=== PATIENT | female | born 1960 | race Caucasian/White ===

== ENCOUNTER 2017-08-18 12:17 | Emergency (ER) | payer MEDICARE, OTHER ==
[2017-08-18] MEDS ORDERED: RX INFO: IV CONTRAST WAS GIVEN 1 EACH MISC MISCELLANE PRN (13:15)
[2017-08-18] MEDS ORDERED: SODIUM CHLORIDE 0.9% 500 ML IV STA (13:15)
--- NOTE | 2017-08-18 13:18 | ED ---
General Adult HPI - General Chief complaint: Back Pain/Injury Stated complaint: Back/Rib Pain Time Seen by Provider: 08/18/17 12:42 Source: patient, RN notes reviewed Mode of arrival: ambulatory Limitations: no limitations - History of Present Illness Initial comments: 57-year-old female presents to the emergency department with a chief complaint of right-sided back and rib pain. She states she's had it for a week. She states mild shortness of breath with this. She states she's had a little bit of cough. She states she's also had some increased acid reflux as well. Patient was concerned due to her continued pain so she went to her doctor he scheduled for an outpatient x-ray but she states that she lost the order so she is here to be seen. Patient denies any fever chills with this. She states she is not currently having any other symptoms.Patient denies any recent fever, chills, abdominal pain, nausea vomiting, numbness or tingling, dysuria or hematuria, constipation or diarrhea, headaches or visual changes, or any other current symptoms. - Related Data Home Medications Medication Instructions Recorded Confirmed Losartan Potassium 100 mg PO DAILY 09/14/14 08/18/17 Rivaroxaban [Xarelto] 20 mg PO DAILY 09/14/14 08/18/17 Acetaminophen [Tylenol Extra 1,000 mg PO BID PRN 08/18/17 08/18/17 Strength] Previous Rx's Medication Instructions Recorded Famotidine [Pepcid] 20 mg PO BID #10 tablet 08/18/17 Hydrocodone/Acetaminophen [[place] 1 each PO Q6HR PRN #20 tab 08/18/17 5-325] Allergies Allergy/AdvReac Type Severity Reaction Status Date / Time No Known Allergies Allergy Verified 08/18/17 12:42 Review of Systems ROS Statement: Those systems with pertinent positive or pertinent negative responses have been documented in the HPI. ROS Other: All systems not noted in ROS Statement are negative. Past Medical History Past Medical History: Hypertension, Pulmonary Embolus (PE) Additional Past Medical History / Comment(s): ortho problems in knees bilaterally. History of Any Multi-Drug Resistant Organisms: None Reported Past Surgical History: No Surgical Hx Reported Past Psychological History: No Psychological Hx Reported Smoking Status: Never smoker Past Alcohol Use History: None Reported Past Drug Use History: None Reported - Past Family History Mother Family Medical History: Blood Disorder, Deep Vein Thrombosis (DVT) Father Family Medical History: Deep Vein Thrombosis (DVT) General Exam - General Exam Comments Initial Comments: General: The patient is awake and alert, in no distress, and does not appear acutely ill. Eye: Pupils are equal, round and reactive to light, extra-ocular movements are intact; there is normal conjunctiva bilaterally. No signs of icterus. Ears, nose, mouth and throat: There are moist mucous membranes and no oral lesions. Neck: The neck is supple, there is no tenderness. Cardiovascular: There is a regular rate and rhythm. No murmur, rub or gallop is appreciated. Respiratory: Lungs are clear to auscultation, respirations are non-labored, breath sounds are equal. No wheezes, stridor, rales, or rhonchi. Gastrointestinal: Soft, non-distended, non-tender abdomen without masses or organomegaly noted. There is no rebound or guarding present. No CVA tenderness. Bowel sounds are unremarkable. Back: There is no tenderness to palpation in the midline. There is no obvious deformity. No rashes noted. Musculoskeletal: Normal ROM, no tenderness, There is no pedal edema. There is no calf tenderness or swelling. Sensation intact. Pulses equal bilaterally 2+. Neurological: CN II-XII intact, There are no obvious motor or sensory deficits. Coordination appears grossly intact. Speech is normal. Skin: Skin is warm and dry and no rashes or lesions are noted. Psychiatric: Cooperative, appropriate mood & affect, normal judgment. Limitations: no limitations Course Vital Signs 08/18/17 08/18/17 08/18/17 12:24 14:15 16:00 Temperature 98.0 F Pulse Rate 86 75 82 Respiratory 18 18 20 Rate Blood Pressure 142/94 140/80 153/81 O2 Sat by Pulse 96 96 95 Oximetry 08/18/17 17:49 Temperature Pulse Rate 77 Respiratory 18 Rate Blood Pressure 150/75 O2 Sat by Pulse 96 Oximetry Medical Decision Making - Medical Decision Making 57 yo female presents for right-sided upper back/lower rib pain. At this time VQ shows low probability for PE. At this time lab work is been reviewed. We will start patient on Pepcid due to her acid reflux. We did discuss follow-up with her doctor. We'll also give her medication for her pain in the back. We discussed return parameters all questions. Patient stated that she understood and she is agreement this plan. She will be discharged. - Lab Data Result diagrams: 08/18/17 13:26 08/18/17 13:26 Lab Results 08/18/17 08/18/17 08/18/17 Range/Units 13:26 13:26 13:26 WBC 6.8 (3.8-10.6) k/uL RBC 5.01 (3.80-5.40) m/uL Hgb 13.9 (11.4-16.0) gm/dL Hct 43.8 (34.0-46.0) % MCV 87.5 (80.0-100.0) fL MCH 27.8 (25.0-35.0) pg MCHC 31.8 (31.0-37.0) g/dL RDW 13.6 (11.5-15.5) % Plt Count 322 (150-450) k/uL Neutrophils % 74 % Lymphocytes % 18 % Monocytes % 5 % Eosinophils % 2 % Basophils % 1 % Neutrophils # 5.0 (1.3-7.7) k/uL Lymphocytes # 1.2 (1.0-4.8) k/uL Monocytes # 0.4 (0-1.0) k/uL Eosinophils # 0.1 (0-0.7) k/uL Basophils # 0.0 (0-0.2) k/uL PT 11.0 (9.0-12.0) sec INR 1.1 (<1.2) APTT 26.1 (22.0-30.0) sec Sodium 146 H (137-145) mmol/L Potassium 4.0 (3.5-5.1) mmol/L Chloride 107 (98-107) mmol/L Carbon Dioxide 25 (22-30) mmol/L Anion Gap 14 mmol/L BUN 18 H (7-17) mg/dL Creatinine 0.60 (0.52-1.04) mg/dL Est GFR (MDRD) Af Amer >60 (>60 ml/min/1.73 sqM) Est GFR (MDRD) Non-Af >60 (>60 ml/min/1.73 sqM) Glucose 92 (74-99) mg/dL Calcium 10.0 (8.4-10.2) mg/dL Total Bilirubin 0.6 (0.2-1.3) mg/dL AST 24 (14-36) U/L ALT 28 (9-52) U/L Alkaline Phosphatase 73 (38-126) U/L Total Protein 8.4 H (6.3-8.2) g/dL Albumin 4.6 (3.5-5.0) g/dL Amylase 43 (30-110) U/L Lipase 57 (23-300) U/L - Radiology Data Radiology results: report reviewed, image reviewed Disposition Clinical Impression: Acid reflux, Strain of thoracic region Disposition: HOME SELF-CARE Condition: Stable Instructions: Gastroesophageal Reflux Disease (ED), Muscle Strain (ED) Additional Instructions: Please use medication as discussed. Please follow up with family doctor if symptoms have not improved over the next two days. Please return to the emergency room if your symptoms increase or worsen or for any other concerns. Prescriptions: Famotidine [Pepcid] 20 mg PO BID #10 tablet Hydrocodone/Acetaminophen [[place] 5-325] 1 each PO Q6HR PRN #20 tab PRN Reason: Pain Referrals: Isaak Bagley DO [Primary Care Provider] - 1-2 days Time of Disposition: 18:07
[2017-08-18 13:39] LABS: Basophils % (A) 1 %; Eosinophils # (A) 0.1 k/uL (0-0.7); Eosinophils % (A) 2 %; HCT 43.8 % (34.0-46.0); HGB 13.9 gm/dL (11.4-16.0); Lymphocytes # (A) 1.2 k/uL (1.0-4.8); Lymphocytes % (A) 18 %; MCH 27.8 pg (25.0-35.0); MCHC 31.8 g/dL (31.0-37.0); MCV 87.5 fL (80.0-100.0); Mean Platelet Volume 7.2; Monocytes # (A) 0.4 k/uL (0-1.0); Monocytes % (A) 5 %; Neutrophils % (A) 74 %; Platelet Count 322 k/uL (150-450); RBC 5.01 m/uL (3.80-5.40); RDW 13.6 % (11.5-15.5); WBC 6.8 k/uL (3.8-10.6)
[2017-08-18 13:46] LABS: INR 1.1 (<1.2); Partial Thromboplastin Time 26.1 sec (22.0-30.0)
[2017-08-18 13:48] LABS: ALT 28 U/L (9-52); AST 24 U/L (14-36); Albumin 4.6 g/dL (3.5-5.0); Alkaline Phosphatase 73 U/L (38-126); Amylase 43 U/L (30-110); Anion Gap 14 mmol/L; Blood Urea Nitrogen 18 mg/dL (7-17); Carbon Dioxide 25 mmol/L (22-30); Chloride 107 mmol/L (98-107); Glucose 92 mg/dL (74-99); Lipase 57 U/L (23-300); Sodium 146 mmol/L (137-145); Total Bilirubin 0.6 mg/dL (0.2-1.3); Total Protein 8.4 g/dL (6.3-8.2)
--- NOTE | 2017-08-18 14:58 | CT ---
EXAMINATION TYPE: CT angio chest DATE OF EXAM: 08/18/2017 COMPARISON: CTA chest September 14, 2014 HISTORY: Chest pain with SOB for [address] DLP: 1121 mGycm. Automated Exposure Control for Dose Reduction was Utilized. CONTRAST: CTA scan of the thorax is performed with IV Contrast, patient injected with 100 ml mL of Omnipaque 35 0, pulmonary embolism protocol. MIP Images are created on CT scanner and reviewed. FINDINGS: LUNGS: There are mild scattered areas of atelectasis and/or scarring throughout the lungs bilaterally including at level of both diaphragms. No suspicious new consolidation or groundglass opacity is see n. No pleural effusion or pneumothorax is noted. Tracheobronchial tree is patent. MEDIASTINUM: There is markedly suboptimal study with majority of contrast in the aorta and SVC. Exam is essentially nondiagnostic for pulmonary embolism. There are no greater than 1 cm hilar or medias tinal lymph nodes. No significant pericardial effusion is seen. There is bovine type arch which is normal variant. Mild cardiomegaly is present. OTHER: Moderate multilevel spurring in the thoracic spine is seen IMPRESSION: 1. Suboptimal study due to body habitus and bolus, essentially nondiagnostic for pulmonary embolism. 2. Stable cardiomegaly with scattered mild areas of atelectasis and/or scarring. . No new suspicious focal infiltrate.
[2017-08-18] MEDS ORDERED: HYDROmorphone 0.5 MG/0.5 ML SYRINGE IVP STA (15:44)
[2017-08-18] MEDS ORDERED: ONDANSETRON 4 MG/2 ML VIAL IVP STA (16:03)
[2017-08-18 17:50] VITALS: RESP 18
--- NOTE | 2017-08-18 18:06 | NM ---
EXAMINATION TYPE: NM pul vent and perfuse DATE OF EXAM: 08/18/2017 COMPARISON: Prior VQ scan September 15, 2014 HISTORY: Chest pain rule out pulmonary embolism TECHNIQUE: Utilizing inhalation of 70.0 mCi Tc 99m DTPA aerosol and intravenous injection of 5.5 mCi of Tc 99m MAA, ventilation and perfusion images are acquired post injection in multiple projections. FINDINGS: Some heterogeneous uptake is seen on ventilation and perfusion images. There is no evidence of mismat ched defects. IMPRESSION: Low probability for pulmonary embolism. No significant change from prior VQ scan.
[2017-08-18 18:34] VITALS: BP 134/69; PULSE 87; TEMP 98.6
== END 2017-08-18 18:34 | disposition home or self-care (01) ==
LOC: EC 12:17
DX: S29.012A Strain of muscle and tendon of back wall of thorax, initial encounter (principal); K21.9 Gastro-esophageal reflux disease without esophagitis; I10 Essential (primary) hypertension; Z86.711 Personal history of pulmonary embolism; R06.02 Shortness of breath; Z79.01 Long term (current) use of anticoagulants; Z79.899 Other long term (current) drug therapy; X58.XXXA Exposure to other specified factors, initial encounter
CPT/HCPCS: 36415; 80053; 82150; 83690; 85025; 85610; 85730; 71275; 78582; 99284; 96374; 96375; A9540; A9567; Q9967; J2405; J1170

== ENCOUNTER 2017-12-20 23:46 | Emergency (ER) | payer MEDICARE, OTHER ==
--- NOTE | 2017-12-21 00:24 | ED ---
General Adult HPI - General Chief complaint: Extremity Injury, Upper Stated complaint: arm pain Time Seen by Provider: 12/21/17 00:12 Source: patient, RN notes reviewed, old records reviewed Mode of arrival: ambulatory Limitations: no limitations - History of Present Illness Initial comments: 57 yo female presenting for evaluation of left arm swelling. Patient noted swelling on the dorsal aspect of her elbow and forearm over the past several days. She did note some mild erythema associated with this. No pain with movement. She has no pain at all in this arm. 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 Patient denies any facial swelling or neck swelling. Denies difficulty breathing or chest pain. Denies fever or chills. Patient states that the redness has been there for some time and her family is always asking her if she has sunburn. This is not a new symptom. - Related Data Home Medications Medication Instructions Recorded Confirmed Losartan Potassium 100 mg PO DAILY 09/14/14 08/18/17 Rivaroxaban [Xarelto] 20 mg PO DAILY 09/14/14 08/18/17 Acetaminophen [Tylenol Extra 1,000 mg PO BID PRN 08/18/17 08/18/17 Strength] Previous Rx's Medication Instructions Recorded Famotidine [Pepcid] 20 mg PO BID #10 tablet 08/18/17 Hydrocodone/Acetaminophen [[place] 1 each PO Q6HR PRN #20 tab 08/18/17 5-325] Allergies Allergy/AdvReac Type Severity Reaction Status Date / Time No Known Allergies Allergy Verified 12/21/17 00:01 Review of Systems ROS Statement: Those systems with pertinent positive or pertinent negative responses have been documented in the HPI. ROS Other: All systems not noted in ROS Statement are negative. Past Medical History Past Medical History: Hypertension, Pulmonary Embolus (PE) Additional Past Medical History / Comment(s): ortho problems in knees bilaterally. History of Any Multi-Drug Resistant Organisms: None Reported Past Surgical History: No Surgical Hx Reported Past Psychological History: No Psychological Hx Reported Smoking Status: Never smoker Past Alcohol Use History: None Reported Past Drug Use History: None Reported - Past Family History Mother Family Medical History: Blood Disorder, Deep Vein Thrombosis (DVT) Father Family Medical History: Deep Vein Thrombosis (DVT) General Exam Limitations: no limitations General appearance: alert, in no apparent distress Head exam: Present: atraumatic, normocephalic Eye exam: Present: normal appearance, PERRL, EOMI ENT exam: Present: normal exam Neck exam: Present: normal inspection. Absent: tenderness, meningismus Respiratory exam: Present: normal lung sounds bilaterally. Absent: respiratory distress, wheezes Cardiovascular Exam: Present: regular rate, normal rhythm GI/Abdominal exam: Present: soft. Absent: distended, tenderness Extremities exam: Present: other (Left upper extremity: Distal pulses intact, no edema present. No tenderness to palpation. Range of motion at the shoulder and elbow are within normal limits. There is no induration or fluctuance. There is adiposity but no significant swelling noted.) Course Vital Signs 12/20/17 12/21/17 23:56 01:18 Temperature 98.1 F 98.6 F Pulse Rate 100 94 Respiratory 20 16 Rate Blood Pressure 168/98 143/87 O2 Sat by Pulse 97 94 L Oximetry Medical Decision Making - Medical Decision Making 57 yo female with concern for left arm swelling. No significant swelling noted on exam, distal pulses intact, no signs of cellulitis. No concern for infectious cause. Patient does have history of DVT and PE. Ultrasound is obtained to rule out blood clot. This is negative. Patient is reassured and she does have an appointment with her primary care physician on Sunday which is 2 days from now. She will return to the emergency department with worsening or changing symptoms. Disposition Clinical Impression: Edema Disposition: HOME SELF-CARE Condition: Good Is patient prescribed a controlled substance at d/c from ED?: No Referrals: Isaak Bagley DO [Primary Care Provider] - 1-2 days Time of Disposition: 01:48
--- NOTE | 2017-12-21 01:22 | US ---
EXAMINATION TYPE: US venous doppler duplex UE LT DATE OF EXAM: 12/21/2017 COMPARISON: NONE CLINICAL HISTORY: Pain. Pain and swelling left arm. SIDE PERFORMED: Left Left Arm: Negative for DVT No evidence of DVT left arm. IMPRESSION: No evidence of deep venous thrombosis in the left arm. No discrete fluid collection.
[2017-12-21 01:28] VITALS: BP 143/87; PULSE 94; RESP 16; TEMP 98.6
== END 2017-12-21 02:11 | disposition home or self-care (01) ==
LOC: EC 23:46
DX: R60.9 Edema, unspecified (principal); I10 Essential (primary) hypertension; Z86.711 Personal history of pulmonary embolism; Z86.718 Personal history of other venous thrombosis and embolism; Z79.01 Long term (current) use of anticoagulants; Z79.899 Other long term (current) drug therapy
CPT/HCPCS: 99284

== ENCOUNTER 2018-04-11 16:40 | Emergency (ER) | payer MEDICARE, OTHER ==
[2018-04-11 16:44] VITALS: BP 140/72; PULSE 97; RESP 20; TEMP 98
--- NOTE | 2018-04-11 17:43 | ED ---
Recheck HPI - General Chief Complaint: Recheck/Abnormal Lab/Rx Stated Complaint: suture removal, recheck Time Seen by Provider: 04/11/18 16:46 Source: patient Mode of arrival: wheelchair Limitations: no limitations - History of Present Illness Initial Comments: 57yo female presenting for suture removal. Pt states she hit a varicose vein 2 weeks ago while out of town. She received stitches at [facility]. When she went for removal at a clinic in [place] pt was told she could not get them out yet, because "it would bleed because she is on xarelto". Pt presents today for suture removal because her primary care provider could not get her an appointment. Upon arrival pt VS within acceptable limits. Pt appears well. ROS ( -). - Related Data Home Medications Medication Instructions Recorded Confirmed Losartan Potassium 100 mg PO DAILY 09/14/14 08/18/17 Rivaroxaban [Xarelto] 20 mg PO DAILY 09/14/14 08/18/17 Acetaminophen [Tylenol Extra 1,000 mg PO BID PRN 08/18/17 08/18/17 Strength] Previous Rx's Medication Instructions Recorded Famotidine [Pepcid] 20 mg PO BID #10 tablet 08/18/17 Hydrocodone/Acetaminophen [[place] 1 each PO Q6HR PRN #20 tab 08/18/17 5-325] Allergies Allergy/AdvReac Type Severity Reaction Status Date / Time No Known Allergies Allergy Verified 04/11/18 16:44 Review of Systems ROS Statement: Those systems with pertinent positive or pertinent negative responses have been documented in the HPI. ROS Other: All systems not noted in ROS Statement are negative. Constitutional: Denies: fever, chills ENT: Denies: ear pain, throat pain Respiratory: Denies: cough Endocrine: Denies: fatigue Gastrointestinal: Denies: abdominal pain, nausea, vomiting Genitourinary: Denies: urgency Neurological: Denies: headache, weakness, numbness, paresthesias, confusion Past Medical History Past Medical History: Hypertension, Pulmonary Embolus (PE) Additional Past Medical History / Comment(s): ortho problems in knees bilaterally. History of Any Multi-Drug Resistant Organisms: None Reported Past Surgical History: No Surgical Hx Reported Past Psychological History: No Psychological Hx Reported Smoking Status: Never smoker Past Alcohol Use History: None Reported Past Drug Use History: None Reported - Past Family History Mother Family Medical History: Blood Disorder, Deep Vein Thrombosis (DVT) Father Family Medical History: Deep Vein Thrombosis (DVT) General Exam - General Exam Comments Initial Comments: General: The patient is awake and alert, in no distress, and does not appear acutely ill. Eye: Pupils are equal, round and reactive to light, extra-ocular movements are intact. No nystagmus. There is normal conjunctiva bilaterally. No signs of icterus. Cardiovascular: There is a regular rate and rhythm. No murmur, rub or gallop is appreciated. Respiratory: Lungs are clear to auscultation, respirations are non-labored, breath sounds are equal. No wheezes, stridor, rales, or rhonchi. Musculoskeletal: Normal ROM, no tenderness. Strength 5/5. Sensation intact. DP pulses equal bilaterally 2+. Neurological: A&O x 3. CN II-XII intact, There are no obvious motor or sensory deficits. Coordination appears grossly intact. Speech is normal. Skin: Skin is warm and dry and no rashes or lesions are noted. [address] on the medial aspect of right ankle. No surrounding edema or erythema. No drainage. Psychiatric: Cooperative, appropriate mood & affect, normal judgment. Limitations: no limitations Course Vital Signs 04/11/18 16:42 Temperature 98.0 F Pulse Rate 97 Respiratory 20 Rate Blood Pressure 140/72 O2 Sat by Pulse 99 Oximetry Medical Decision Making - Medical Decision Making Suture removed without difficulty or bleeding. No signs of infection. Pt stable for discharge. Case discussed with Dr. Flanagan prior to d/c. Pt to f/u with PCP in 1-2 days. Pt discharged in stable condition. Disposition Clinical Impression: Visit for suture removal Disposition: HOME SELF-CARE Condition: Good Instructions: Stitches Removal (ED) Additional Instructions: Please follow-up with family doctor in the next 2 days with your primary care provider. Please return to emergency room if the symptoms increase or worsen or for any other concerns. Is patient prescribed a controlled substance at d/c from ED?: No Referrals: Isaak Bagley DO [Primary Care Provider] - 1-2 days Talita Randhawa MD [STAFF PHYSICIAN] - 1-2 days Time of Disposition: 17:42
== END 2018-04-11 17:49 | disposition home or self-care (01) ==
LOC: EC 16:40
DX: Z48.02 Encounter for removal of sutures (principal); I10 Essential (primary) hypertension; Z86.711 Personal history of pulmonary embolism; Z79.01 Long term (current) use of anticoagulants; Z79.899 Other long term (current) drug therapy
CPT/HCPCS: 99281

== ENCOUNTER → 2019-05-15 | Outpatient (CLI) | payer MEDICARE, OTHER ==
--- NOTE | 2019-05-15 11:52 | XR ---
EXAMINATION TYPE: XR chest 2V DATE OF EXAM: 05/15/2019 COMPARISON: Prior chest x-ray dated 11/25/2013 HISTORY: Acute bronchitis, pneumonia TECHNIQUE: Frontal and lateral views of the chest are obtained. FINDINGS: Patient is rotated. There is no focal air space opacity, pleural effusion, or pneumothorax seen. The cardiac silhouette size is within normal limits. Thoracic spondylosis is present. The oss eous structures are intact. IMPRESSION: No acute cardiopulmonary process.
== END | disposition home or self-care (01) ==
LOC: RADXRMAIN 09:59
PROVIDERS: ATTEND Family Medicine
DX: J20.9 Acute bronchitis, unspecified (principal); J18.9 Pneumonia, unspecified organism
CPT/HCPCS: 71046

== ENCOUNTER 2021-01-04 14:43 | Inpatient (IN) | payer MEDICARE, OTHER ==
[2021-01-04] MEDS ORDERED: MORPHINE SULFATE 4 MG/ML SYRINGE IM STA (15:23)
[2021-01-04] MEDS ORDERED: FUROSEMIDE 10 MG/ML 4 ML VIAL IV STA (15:45)
--- NOTE | 2021-01-04 15:45 | XR ---
EXAMINATION TYPE: XR knee complete RT DATE OF EXAM: 01/04/2021 COMPARISON: NONE HISTORY: Pain and weakness in right knee. Swelling of bilateral legs. No known injury. pain. TECHNIQUE: AP, oblique, and lateral views of the right knee. FINDINGS: No acute fracture. No dislocation. There is medial compartment joint space narrowing and sc lerosis. There is marked tricompartmental osteoarthritic spurring. Normal mineralization. There is si gnificant overlying soft tissue, which limits evaluation for joint effusion. IMPRESSION: 1. No acute fracture or dislocation. 2. Marked tricompartmental osteoarthrosis, with medial compartment joint space narrowing.
[2021-01-04 16:25] LABS: Basophils % (A) 0 %; Eosinophils # (A) 0.1 k/uL (0-0.7); Eosinophils % (A) 2 %; HCT 34.4 % (34.0-46.0); Lymphocytes # (A) 0.6 k/uL (1.0-4.8); Lymphocytes % (A) 9 %; MCH 26.7 pg (25.0-35.0); MCHC 31.9 g/dL (31.0-37.0); MCV 83.7 fL (80.0-100.0); Mean Platelet Volume 7.5; Monocytes # (A) 0.3 k/uL (0-1.0); Monocytes % (A) 5 %; Neutrophils % (A) 83 %; Platelet Count 301 k/uL (150-450); RBC 4.11 m/uL (3.80-5.40); RDW 14.4 % (11.5-15.5); WBC 7.3 k/uL (3.8-10.6)
--- NOTE | 2021-01-04 16:34 | XR ---
EXAMINATION TYPE: XR chest 2V DATE OF EXAM: 01/04/2021 COMPARISON: 05/15/2019. HISTORY: Bilateral lower extremity edema. Pain. TECHNIQUE: Frontal and lateral views of the chest are obtained. FINDINGS: There is [id number] interstitial edema with accompanying mild hazy opacity. No signi ficant pleural effusion, or pneumothorax seen. The cardiac silhouette size is enlarged. The osseou s structures are intact. IMPRESSION: Mild to moderate CHF.
[2021-01-04 16:36] LABS: ALT 15 U/L (4-34); AST 34 U/L (14-36); African American GFR (CKD) >90 (>60 ml/min/1.73 sqM); Albumin 3.9 g/dL (3.5-5.0); Alkaline Phosphatase 77 U/L (38-126); Anion Gap 7 mmol/L; Blood Urea Nitrogen 18 mg/dL (7-17); Carbon Dioxide 28 mmol/L (22-30); Chloride 109 mmol/L (98-107); Glucose 104 mg/dL (74-99); Non-African American GFR(CKD) >90 (>60 ml/min/1.73 sqM); Potassium 4.3 mmol/L (3.5-5.1); Sodium 144 mmol/L (137-145); Total Bilirubin 0.5 mg/dL (0.2-1.3); Total Protein 7.1 g/dL (6.3-8.2)
[2021-01-04] MEDS ORDERED: HYDROmorphone 0.5 MG/0.5 ML SYRINGE IVP STA (18:43)
--- NOTE | 2021-01-04 18:44 | ED ---
General Adult HPI - General Chief complaint: Extremity Problem,Nontraumatic Stated complaint: Leg Pain Time Seen by Provider: 01/04/21 14:47 Source: patient, EMS, RN notes reviewed Mode of arrival: EMS Limitations: no limitations - History of Present Illness Initial comments: 60-year-old female with a past medical history of lymphedema, hypertension, PE, chronic knee pain presents to the emergency department for a chief complaint of leg swelling. Patient reports she has had lymphedema for over a year now and has been seeing a vascular surgeon. However over the past 2 weeks she reports her legs have doubled in size. States she can no longer walk because of this weight and the pain in her right knee. Patient states her legs are now weeping and significantly worse than normal. She feels short of breath. He could not get up today and had to call the ambulance who brought her to the emergency room.Patient has no other complaints at this time including shortness of breath, chest pain, abdominal pain, nausea or vomiting, headache, or visual changes. - Related Data Home Medications Medication Instructions Recorded Confirmed Losartan Potassium 100 mg PO DAILY 09/14/14 01/04/21 Rivaroxaban [Xarelto] 20 mg PO DAILY 09/14/14 01/04/21 Acetaminophen with Codeine 1 tab PO BID PRN 01/04/21 01/04/21 [Tylenol w/Codeine #4 Tablet] Ibuprofen 800 mg PO Q8H PRN 01/04/21 01/04/21 Ketoconazole 2% Cream [Nizoral 2%] 1 applic TOPICAL BID 01/04/21 01/04/21 Nystatin [Nystop] 1 applic TOPICAL BID 01/04/21 01/04/21 Omeprazole 20 mg PO DAILY 01/04/21 01/04/21 Terbinafine [LamISIL] 250 mg PO DAILY 01/04/21 01/04/21 diphenhydrAMINE [Benadryl] 25 mg PO QID PRN 01/04/21 01/04/21 Allergies Allergy/AdvReac Type Severity Reaction Status Date / Time No Known Allergies Allergy Verified 01/04/21 18:14 Review of Systems ROS Statement: Those systems with pertinent positive or pertinent negative responses have been documented in the HPI. ROS Other: All systems not noted in ROS Statement are negative. Past Medical History Past Medical History: Hypertension, Pulmonary Embolus (PE) Additional Past Medical History / Comment(s): ortho problems in knees bilaterally, lymphedema History of Any Multi-Drug Resistant Organisms: None Reported Past Surgical History: No Surgical Hx Reported Past Psychological History: No Psychological Hx Reported Smoking Status: Never smoker Past Alcohol Use History: None Reported Past Drug Use History: None Reported - Past Family History Mother Family Medical History: Blood Disorder, Deep Vein Thrombosis (DVT) Father Family Medical History: Deep Vein Thrombosis (DVT) General Exam Limitations: no limitations General appearance: alert Head exam: Present: atraumatic, normocephalic, normal inspection Eye exam: Present: normal appearance, PERRL, EOMI. Absent: scleral icterus, conjunctival injection, periorbital swelling ENT exam: Present: normal exam, mucous membranes moist Neck exam: Present: normal inspection, full ROM. Absent: tenderness, meningismus, lymphadenopathy Respiratory exam: Present: normal lung sounds bilaterally. Absent: respiratory distress, wheezes, rales, rhonchi, stridor Cardiovascular Exam: Present: regular rate, normal rhythm, normal heart sounds. Absent: systolic murmur, diastolic murmur, rubs, gallop, clicks GI/Abdominal exam: Present: soft, normal bowel sounds. Absent: distended, ten derness, guarding, rebound, rigid Extremities exam: Present: other (Significant edema noted of bilateral lower extremities with weeping noted. About 30 flexion of the knees, extension to neutral position. Capillary refill less than 2 seconds in bilateral lower extremities. No erythema or evidence of cellulitis.) Course Vital Signs 01/04/21 14:48 Temperature 99.6 F Pulse Rate 104 H Respiratory 18 Rate Blood Pressure 154/78 EKG Findings - EKG Comments: EKG Findings:: Normal sinus rhythm, ventricular rate 99, UT interval 186, QTc 454 Medical Decision Making - Medical Decision Making Vitals are stable. HPI and physical exam as documented. Patient's symptoms worsen significantly over the past 2 weeks and her leg swelling has doubled in size. She reports that her doctor said she could maybe benefit from Lasix. Patient does have shortness of breath. Laboratory evaluation was obtained. CBC CMP unremarkable. Troponin negative. BNP 86. Chest x-ray however does show mild to moderate CHF. Patient likely has a CHF exacerbation which is increased edema in the bilateral lower extremities. Lasix was started. Case was discussed with Allison from [facility]. Patient will be admitted on Lasix. You catheter placed as patient was very difficult to ambulate to the commode or to place a a bedpan under. - Lab Data Result diagrams: 01/04/21 15:44 01/04/21 15:44 Lab Results 01/04/21 01/04/21 01/04/21 Range/Units 15:44 15:44 15:45 WBC 7.3 (3.8-10.6) k/uL RBC 4.11 (3.80-5.40) m/uL Hgb 11.0 L (11.4-16.0) gm/dL Hct 34.4 (34.0-46.0) % MCV 83.7 (80.0-100.0) fL MCH 26.7 (25.0-35.0) pg MCHC 31.9 (31.0-37.0) g/dL RDW 14.4 (11.5-15.5) % Plt Count 301 (150-450) k/uL MPV 7.5 Neutrophils % 83 % Lymphocytes % 9 % Monocytes % 5 % Eosinophils % 2 % Basophils % 0 % Neutrophils # 6.0 (1.3-7.7) k/uL Lymphocytes # 0.6 L (1.0-4.8) k/uL Monocytes # 0.3 (0-1.0) k/uL Eosinophils # 0.1 (0-0.7) k/uL Basophils # 0.0 (0-0.2) k/uL Sodium 144 (137-145) mmol/L Potassium 4.3 (3.5-5.1) mmol/L Chloride 109 H (98-107) mmol/L Carbon Dioxide 28 (22-30) mmol/L Anion Gap 7 mmol/L BUN 18 H (7-17) mg/dL Creatinine 0.66 (0.52-1.04) mg/dL Est GFR (CKD-EPI)AfAm >90 (>60 ml/min/1.73 sqM) Est GFR (CKD-EPI)NonAf >90 (>60 ml/min/1.73 sqM) Glucose 104 H (74-99) mg/dL Calcium 9.0 (8.4-10.2) mg/dL Total Bilirubin 0.5 (0.2-1.3) mg/dL AST 34 (14-36) U/L ALT 15 (4-34) U/L Alkaline Phosphatase 77 (38-126) U/L Troponin I <0.012 (0.000-0.034) ng/mL NT-Pro-B Natriuret Pep pg/mL Total Protein 7.1 (6.3-8.2) g/dL Albumin 3.9 (3.5-5.0) g/dL 01/04/21 Range/Units 15:45 WBC (3.8-10.6) k/uL RBC (3.80-5.40) m/uL Hgb (11.4-16.0) gm/dL Hct (34.0-46.0) % MCV (80.0-100.0) fL MCH (25.0-35.0) pg MCHC (31.0-37.0) g/dL RDW (11.5-15.5) % Plt Count (150-450) k/uL MPV Neutrophils % % Lymphocytes % % Monocytes % % Eosinophils % % Basophils % % Neutrophils # (1.3-7.7) k/uL Lymphocytes # (1.0-4.8) k/uL Monocytes # (0-1.0) k/uL Eosinophils # (0-0.7) k/uL Basophils # (0-0.2) k/uL Sodium (137-145) mmol/L Potassium (3.5-5.1) mmol/L Chloride (98-107) mmol/L Carbon Dioxide (22-30) mmol/L Anion Gap mmol/L BUN (7-17) mg/dL Creatinine (0.52-1.04) mg/dL Est GFR (CKD-EPI)AfAm (>60 ml/min/1.73 sqM) Est GFR (CKD-EPI)NonAf (>60 ml/min/1.73 sqM) Glucose (74-99) mg/dL Calcium (8.4-10.2) mg/dL Total Bilirubin (0.2-1.3) mg/dL AST (14-36) U/L ALT (4-34) U/L Alkaline Phosphatase (38-126) U/L Troponin I (0.000-0.034) ng/mL NT-Pro-B Natriuret Pep 86 pg/mL Total Protein (6.3-8.2) g/dL Albumin (3.5-5.0) g/dL Disposition Clinical Impression: Leg edema, CHF exacerbation, Knee pain, Inability to ambulate due to knee, Morbid obesity Disposition: ADMITTED IP TO THIS HOSP Is patient prescribed a controlled substance at d/c from ED?: No Referrals: None,Stated [Primary Care Provider] - 1-2 days Time of Disposition: 18:45
[2021-01-04] MEDS ORDERED: IBUPROFEN 800 MG TAB PO PRN (18:47)
[2021-01-04] MEDS: FUROSEMIDE 10 MG/ML 4 ML VIAL IV SCH (18:54)
[2021-01-04] MEDS: CLOTRIMAZOLE 1% CREAM 30 GM TUBE TOPICAL SCH (22:10)
[2021-01-04] MEDS: NYSTATIN 100,000 UNIT/GM POWD 15 GM TOPICAL SCH (22:10)
[2021-01-05] MEDS: FUROSEMIDE 10 MG/ML 4 ML VIAL IV SCH ×2 (06:38→16:58)
[2021-01-05] MEDS: PANTOPRAZOLE 40 MG TABLET PO SCH (06:38)
[2021-01-05] MEDS: NYSTATIN 100,000 UNIT/GM POWD 15 GM TOPICAL SCH ×2 (08:38→19:45)
[2021-01-05] MEDS: TERBINAFINE 250 MG TAB PO SCH (08:39)
[2021-01-05] MEDS: RIVAROXABAN 20 MG TAB PO SCH (08:39)
[2021-01-05] MEDS: CLOTRIMAZOLE 1% CREAM 30 GM TUBE TOPICAL SCH ×2 (08:39→19:46)
[2021-01-05] MEDS ORDERED: LOSARTAN 50 MG TAB PO SCH (09:00)
--- NOTE | 2021-01-05 10:45 | P.CRDCN ---
History of Present Illness Consult date: 01/05/21 History of present illness: HISTORY OF PRESENT ILLNESS: This is a 60-year-old female with a past medical history significant for hypertension and pulmonary embolism on anticoagulation with Xarelto. Patient does not follow with a laminator printed circuit boards. We have been asked to see the patient in consultation for congestive heart failure. Patient examined at the bedside. Patient states she has chronic lymphedema in her bilateral lower extremities. She is trying to find a lymphedema specialist in the area to help manage this. Patient states over the past couple days the swelling in her right lower extremity has gotten worse and she has been unable to bend her leg which prompted her to come to the emergency room if she has been unable to ambulate. The patient currently denies chest pain or pressure. She denies shortness of breath. Chest x-ray completed in the emergency room revealed evidence of congestive heart failure. Patient's BNP was within normal limits at 86. She is currently on 2 L nasal cannula with oxygen saturations greater than 92%. Patient was found to be mildly hypoxic on room air. Patient denies ever seen a laminator printed circuit boards in the past. She denies having a stress test performed previously. She denies history of congestive heart failure EKG reveals sinus mechanism with Q waves in inferior leads. No signs of acute ischemia Chest xray mild to moderate interstitial edema with accompanying mild hazy opacities. Impression mild to moderate congestive heart failure. Laboratory data: WBC 7.3. Hemoglobin 11.0. Platelet count 301. Sodium 144. Potassium 4.3. BUN 18. Creatinine 0.66. Troponin negative 1. BNP 86. Current home cardiac medications include Xarelto 20 mg daily and losartan 100 mg daily REVIEW OF SYSTEMS: At the time of my exam: CONSTITUTIONAL: Denies fever or chills. HEENT: Denies blurred vision, vision changes, or eye pain. Denies hemoptysis CARDIOVASCULAR: Denies chest pain. Denies orthopnea. Denies PND. Denies palpitations RESPIRATORY: Denies shortness of breath. GASTROINTESTINAL: Denies abdominal pain. Denies nausea or vomiting. HEMATOLOGIC: Denies bleeding disorders. GENITOURINARY: Denies any blood in urine. SKIN: Denies pruitis. Denies rash. PHYSICAL EXAM: VITAL SIGNS: Reviewed. GENERAL: Well-developed in no acute distress. HEENT: Head is normocephalic. Pupils are equal, round. Sclerae anicteric. Mucous membranes of the mouth are moist. Neck supple. No JVD or thyromegaly LUNGS: Respirations even and unlabored. Lungs diminished bilaterally. HEART: Regular rate and rhythm. S1 and S2 heard. ABDOMEN: Soft. Nondistended. Nontender. EXTREMITIES: Normal range of motion. No clubbing or cyanosis. Peripheral pulses intact. Bilateral lower extremity edema with evidence of lymphedema NEUROLOGIC: Awake and alert. Oriented x 3. ASSESSMENT: Chronic bilateral lower extremity edema secondary to lymphedema Mild acute CHF, per CXR, normal BNP Hypertension History of PE, on anticoagulation with Xarelto PLAN: Resume home cardiac medications Continue anticoagulation with Xarelto Continue IV Lasix Daily weights Accurate I&O Monitor kidney function Obtain 2-D echo to assess critic structures and function Further recommendations for inpatient course Nurse practitioner note has been reviewed by physician. Signing provider agrees with the documented findings, assessment, and plan of care. Past Medical History Past Medical History: Hypertension, Pulmonary Embolus (PE) Additional Past Medical History / Comment(s): ortho problems in knees bilaterally, lymphedema History of Any Multi-Drug Resistant Organisms: None Reported Past Surgical History: No Surgical Hx Reported Past Psychological History: No Psychological Hx Reported Smoking Status: Never smoker Past Alcohol Use History: None Reported Past Drug Use History: None Reported - Past Family History Mother Family Medical History: Blood Disorder, Deep Vein Thrombosis (DVT) Father Family Medical History: Deep Vein Thrombosis (DVT) Medications and Allergies Home Medications Medication Instructions Recorded Confirmed Type Losartan Potassium 100 mg PO DAILY 09/14/14 01/04/21 History Rivaroxaban [Xarelto] 20 mg PO DAILY 09/14/14 01/04/21 History Acetaminophen with Codeine 1 tab PO BID PRN 01/04/21 01/04/21 History [Tylenol w/Codeine #4 Tablet] Ibuprofen 800 mg PO Q8H PRN 01/04/21 01/04/21 History Ketoconazole 2% Cream [Nizoral 2%] 1 applic TOPICAL BID 01/04/21 01/04/21 History Nystatin [Nystop] 1 applic TOPICAL BID 01/04/21 01/04/21 History Omeprazole 20 mg PO DAILY 01/04/21 01/04/21 History Terbinafine [LamISIL] 250 mg PO DAILY 01/04/21 01/04/21 History diphenhydrAMINE [Benadryl] 25 mg PO QID PRN 01/04/21 01/04/21 History Allergies Allergy/AdvReac Type Severity Reaction Status Date / Time No Known Allergies Allergy Verified 01/04/21 18:14 Physical Exam Vitals: Vital Signs Temp Pulse Pulse Resp BP BP Pulse Ox 01/05/21 08:00 83 16 117/61 88 L 01/05/21 04:00 85 18 120/56 92 L 01/05/21 00:00 97 18 116/72 90 L 01/04/21 21:40 97.8 F 18 100/54 95 01/04/21 14:48 99.6 F 104 H 18 154/78 Intake and Output 01/04/21 01/05/21 01/05/21 22:59 06:59 14:59 Intake Total 240 Output Total 500 2775 Balance -002 -9914 Intake: Oral 240 Output: Urine 500 2775 Other: Voiding Method Indwelling Catheter Indwelling Catheter Weight 142.882 kg 189.3 kg Results 01/04/21 15:44 01/04/21 15:44 Cardiac Enzymes 01/04/21 01/04/21 Range/Units 15:44 15:45 AST 34 (14-36) U/L Troponin I <0.012 (0.000-0.034) ng/mL CBC 01/04/21 Range/Units 15:44 WBC 7.3 (3.8-10.6) k/uL RBC 4.11 (3.80-5.40) m/uL Hgb 11.0 L (11.4-16.0) gm/dL Hct 34.4 (34.0-46.0) % Plt Count 301 (150-450) k/uL Comprehensive Metabolic Panel 01/04/21 Range/Units 15:44 Sodium 144 (137-145) mmol/L Potassium 4.3 (3.5-5.1) mmol/L Chloride 109 H (98-107) mmol/L Carbon Dioxide 28 (22-30) mmol/L BUN 18 H (7-17) mg/dL Creatinine 0.66 (0.52-1.04) mg/dL Glucose 104 H (74-99) mg/dL Calcium 9.0 (8.4-10.2) mg/dL AST 34 (14-36) U/L ALT 15 (4-34) U/L Alkaline Phosphatase 77 (38-126) U/L Total Protein 7.1 (6.3-8.2) g/dL Albumin 3.9 (3.5-5.0) g/dL Current Medications Generic Name Dose Route Start Last Admin Trade Name Freq PRN Reason Stop Dose Admin Acetaminophen/Codeine Phosphate 1 each 01/04/21 18:47 Acetaminophen-Codeine 300-30mg Tab PO BID PRN Pain Clotrimazole 1 applic 01/04/21 21:00 01/05/21 08:39 Clotrimazole 1% Cream 30 Gm Tube TOPICAL 1 applic BID KAYLEY Administration Diphenhydramine HCl 25 mg 01/04/21 18:47 Diphenhydramine 25 Mg Cap PO QID PRN Itching Furosemide 40 mg 01/04/21 18:45 01/05/21 06:38 Furosemide 10 Mg/Ml 4 Ml Vial IV 40 mg Q12H KAYLEY Administration Ibuprofen 800 mg 01/04/21 18:47 Ibuprofen 800 Mg Tab PO Q8H PRN Pain Losartan Potassium 100 mg 01/05/21 09:00 01/05/21 08:39 Losartan 50 Mg Tab PO 100 mg DAILY KAYLEY Administration Morphine Sulfate 4 mg 01/04/21 18:46 Morphine Sulfate 4 Mg/Ml Syringe IVP Q4H PRN Pain Nystatin 1 applic 01/04/21 21:00 01/05/21 08:38 Nystatin 100,000 Unit/Gm Powd 15 Gm TOPICAL 1 applic BID KAYLEY Administration Protocol Pantoprazole Sodium 40 mg 01/05/21 07:30 01/05/21 06:38 Pantoprazole 40 Mg Tablet PO 40 mg DAILY@0730 KAYLEY Administration Rivaroxaban 20 mg 01/05/21 09:00 01/05/21 08:39 Rivaroxaban 20 Mg Tab PO 20 mg DAILY KAYLEY Administration Protocol Terbinafine HCl 250 mg 01/05/21 09:00 01/05/21 08:39 Terbinafine 250 Mg Tab PO 250 mg DAILY KAYLEY Administration Intake and Output 01/04/21 01/05/21 01/05/21 22:59 06:59 14:59 Intake Total 240 Output Total 500 2775 Balance -500 -2535 Intake: Oral 240 Output: Urine 500 2775 Other: Voiding Method Indwelling Catheter Indwelling Catheter Weight 142.882 kg 189.3 kg 01/04/21 15:44 01/04/21 15:44
[2021-01-05 11:29] LABS: African American GFR (CKD) >90 (>60 ml/min/1.73 sqM); Anion Gap 5 mmol/L; Blood Urea Nitrogen 16 mg/dL (7-17); Calcium 8.8 mg/dL (8.4-10.2); Carbon Dioxide 29 mmol/L (22-30); Chloride 107 mmol/L (98-107); Glucose 102 mg/dL (74-99); Non-African American GFR(CKD) >90 (>60 ml/min/1.73 sqM); Sodium 141 mmol/L (137-145)
--- NOTE | 2021-01-05 11:29 | P.HPIM ---
History of Present Illness Patient developed a 60-year-old pleasant obese female came in because of for right knee pain and she felt like her right knee gave up. Patient has severe osteoarthritis of the right knee able to bear weight and no evidence of any te ndinous injury. Although patient was admitted for possibly of heart failure exacerbation. Patient does have extensive related edema which is chronic and nonpitting from her lymphedema. Patient denied any orthopnea paroxysmal nocturnal dyspnea. Patient was given Lasix with significant urine output patient BNP is only 60 chest x-ray looked like CHF because of her obesity and soft tissue interference. Patient denied any fever chills patient and nausea vomiting chest pain palpitations. Patient does admit to mild increase in his in her bilateral lower exudative swelling REVIEW OF SYSTEMS: CONSTITUTIONAL: No fever, no malaise, no fatigue. HEENT: No recent visual problems or hearing problems. Denied any sore throat. CARDIOVASCULAR: No chest pain, orthopnea, PND, no palpitations, no syncope. PULMONARY: No shortness of breath, no cough, no hemoptysis. GASTROINTESTINAL: No diarrhea, no nausea, no vomiting, no abdominal pain. NEUROLOGICAL: No headaches, no weakness, no numbness. HEMATOLOGICAL: Denies any bleeding or petechiae. GENITOURINARY: Denies any burning micturition, frequency, or urgency. MUSCULOSKELETAL/RHEUMATOLOGICAL: Denies any joint pain, swelling, or any muscle pain. ENDOCRINE: Denies any polyuria or polydipsia. The rest of the 14-point review of systems is negative. PHYSICAL EXAMINATION: GENERAL: The patient is alert and oriented x3, not in any acute distress. Well developed, well nourished. HEENT: Pupils are round and equally reacting to light. EOMI. No scleral icterus. No conjunctival pallor. Normocephalic, atraumatic. No pharyngeal erythema. No thyromegaly. CARDIOVASCULAR: S1 and S2 present. No murmurs, rubs, or gallops. PULMONARY: Chest is clear to auscultation, no wheezing or crackles. ABDOMEN: Soft, nontender, nondistended, normoactive bowel sounds. No palpable organomegaly. MUSCULOSKELETAL: Mentioned in HPI EXTREMITIES: No cyanosis, clubbing, or pedal edema. NEUROLOGICAL: Gross neurological examination did not reveal any focal deficits. SKIN: No rashes. Assessment and plan -Bilateral lower extremity swelling most probably secondary to lymphedema there may be a competent of mild heart failure exacerbation mostly diastolic dysfunction patient will be continued on IV Lasix obtain echo cardiac and possibility of discharge tomorrow -Severe osteoarthritis multiple joints and pain in the right knee secondary to severe osteoarthritis -Chronic lymphedema patient is about to follow with the lymphedema specialist and he was to [place] -History of pulmonary embolism for which patient is on Xarelto which will be continued -Hypertension -Morbid obesity DVT prophylaxis: Patient is already on anticoagulation which will be continued Past Medical History Past Medical History: Hypertension, Pulmonary Embolus (PE) Additional Past Medical History / Comment(s): ortho problems in knees bilaterally, lymphedema History of Any Multi-Drug Resistant Organisms: None Reported Past Surgical History: No Surgical Hx Reported Past Psychological History: No Psychological Hx Reported Smoking Status: Never smoker Past Alcohol Use History: None Reported Past Drug Use History: None Reported - Past Family History Mother Family Medical History: Blood Disorder, Deep Vein Thrombosis (DVT) Father Family Medical History: Deep Vein Thrombosis (DVT) Medications and Allergies Home Medications Medication Instructions Recorded Confirmed Type Losartan Potassium 100 mg PO DAILY 09/14/14 01/04/21 History Rivaroxaban [Xarelto] 20 mg PO DAILY 09/14/14 01/04/21 History Acetaminophen with Codeine 1 tab PO BID PRN 01/04/21 01/04/21 History [Tylenol w/Codeine #4 Tablet] Ibuprofen 800 mg PO Q8H PRN 01/04/21 01/04/21 History Ketoconazole 2% Cream [Nizoral 2%] 1 applic TOPICAL BID 01/04/21 01/04/21 History Nystatin [Nystop] 1 applic TOPICAL BID 01/04/21 01/04/21 History Omeprazole 20 mg PO DAILY 01/04/21 01/04/21 History Terbinafine [LamISIL] 250 mg PO DAILY 01/04/21 01/04/21 History diphenhydrAMINE [Benadryl] 25 mg PO QID PRN 01/04/21 01/04/21 History Allergies Allergy/AdvReac Type Severity Reaction Status Date / Time No Known Allergies Allergy Verified 01/04/21 18:14 Physical Exam Vitals: Vital Signs Temp Pulse Pulse Resp BP BP Pulse Ox 01/05/21 08:00 83 16 117/61 88 L 01/05/21 04:00 85 18 120/56 92 L 01/05/21 00:00 97 18 116/72 90 L 01/04/21 21:40 97.8 F 18 100/54 95 01/04/21 14:48 99.6 F 104 H 18 154/78 Intake and Output 01/04/21 01/05/21 01/05/21 22:59 06:59 14:59 Intake Total 240 Output Total 500 3250 Balance -500 -3010 Intake: Oral 240 Output: Urine 500 3250 Other: Voiding Method Indwelling Catheter Indwelling Catheter Indwelling Catheter Weight 142.882 kg 189.3 kg Results CBC & Chem 7: 01/04/21 15:44 01/04/21 15:44 Labs: Abnormal Lab Results - Last 24 Hours (Table) 01/04/21 01/04/21 Range/Units 15:44 15:44 Hgb 11.0 L (11.4-16.0) gm/dL Lymphocytes # 0.6 L (1.0-4.8) k/uL Chloride 109 H (98-107) mmol/L BUN 18 H (7-17) mg/dL Glucose 104 H (74-99) mg/dL
[2021-01-05 11:33] LABS: Potassium 4.5 mmol/L (3.5-5.1)
[2021-01-05 13:42] VITALS: BMI 65.3
[2021-01-05] MEDS: Acetaminophen-Codeine 300-30mg TAB PO PRN (15:29)
[2021-01-05] MEDS: diphenhydrAMINE 25 MG CAP PO PRN (23:06)
[2021-01-06] MEDS: Acetaminophen-Codeine 300-30mg TAB PO PRN ×2 (03:24→23:04)
[2021-01-06] MEDS: PANTOPRAZOLE 40 MG TABLET PO SCH (06:10)
[2021-01-06] MEDS: FUROSEMIDE 10 MG/ML 4 ML VIAL IV SCH ×2 (06:10→16:58)
[2021-01-06 07:42] LABS: HCT 34.7 % (34.0-46.0); HGB 11.7 gm/dL (11.4-16.0); MCHC 33.6 g/dL (31.0-37.0); MCV 83.5 fL (80.0-100.0); Platelet Count 290 k/uL (150-450); RBC 4.16 m/uL (3.80-5.40); WBC 7.7 k/uL (3.8-10.6)
[2021-01-06 07:51] LABS: African American GFR (CKD) >90 (>60 ml/min/1.73 sqM); Anion Gap 4 mmol/L; Blood Urea Nitrogen 18 mg/dL (7-17); Calcium 8.9 mg/dL (8.4-10.2); Carbon Dioxide 33 mmol/L (22-30); Chloride 102 mmol/L (98-107); Glucose 97 mg/dL (74-99); Non-African American GFR(CKD) >90 (>60 ml/min/1.73 sqM); Sodium 139 mmol/L (137-145)
[2021-01-06 08:04] LABS: Potassium 3.8 mmol/L (3.5-5.1)
[2021-01-06] MEDS: TERBINAFINE 250 MG TAB PO SCH (08:43)
[2021-01-06] MEDS: CLOTRIMAZOLE 1% CREAM 30 GM TUBE TOPICAL SCH ×2 (08:44→21:03)
[2021-01-06] MEDS: LOSARTAN 50 MG TAB PO SCH (08:44)
[2021-01-06] MEDS: RIVAROXABAN 20 MG TAB PO SCH (08:44)
[2021-01-06] MEDS: NYSTATIN 100,000 UNIT/GM POWD 15 GM TOPICAL SCH ×2 (08:44→21:03)
--- NOTE | 2021-01-06 10:43 | P.PN ---
Subjective Progress Note Date: 01/06/21 HISTORY OF PRESENT ILLNESS: This is a 60-year-old female with a past medical history significant for hypertension and pulmonary embolism on anticoagulation with Xarelto. Patient does not follow with a painter hand. We have been asked to see the patient in consultation for congestive heart failure. Patient examined at the bedside. Patient states she has chronic lymphedema in her bilateral lower extremities. She is trying to find a lymphedema specialist in the area to help manage this. Patient states over the past couple days the swelling in her right lower extremity has gotten worse and she has been unable to bend her leg which prompted her to come to the emergency room if she has been unable to ambulate. The patient currently denies chest pain or pressure. She denies shortness of breath. Chest x-ray completed in the emergency room revealed evidence of congestive heart failure. Patient's BNP was within normal limits at 86. She is currently on 2 L nasal cannula with oxygen saturations greater than 92%. Patient was found to be mildly hypoxic on room air. Patient denies ever seen a painter hand in the past. She denies having a stress test performed previously. She denies history of congestive heart failure EKG reveals sinus mechanism with Q waves in inferior leads. No signs of acute ischemia Chest xray mild to moderate interstitial edema with accompanying mild hazy opacities. Impression mild to moderate congestive heart failure. Laboratory data: WBC 7.3. Hemoglobin 11.0. Platelet count 301. Sodium 144. Potassium 4.3. BUN 18. Creatinine 0.66. Troponin negative 1. BNP 86. Current home cardiac medications include Xarelto 20 mg daily and losartan 100 mg daily 01/06/2021 Patient examined at the bedside this morning. Patient denies chest pain or pressure. She currently denies shortness of breath. She remains on IV lasix. Vital signs are stable. Patient is on 2L with oxygen saturations greater than 92%. BUN 18. Creatinine 0.53. PHYSICAL EXAM: VITAL SIGNS: Reviewed. GENERAL: Well-developed in no acute distress. HEENT: Head is normocephalic. Pupils are equal, round. Sclerae anicteric. Mucous membranes of the mouth are moist. Neck supple. No JVD or thyromegaly LUNGS: Respirations even and unlabored. Lungs diminished bilaterally. HEART: Regular rate and rhythm. S1 and S2 heard. ABDOMEN: Soft. Nondistended. Nontender. EXTREMITIES: Normal range of motion. No clubbing or cyanosis. Peripheral pulses intact. Bilateral lower extremity edema with evidence of lymphedema NEUROLOGIC: Awake and alert. Oriented x 3. ASSESSMENT: Chronic bilateral lower extremity edema secondary to lymphedema Mild acute CHF, per CXR, normal BNP Hypertension History of PE, on anticoagulation with Xarelto PLAN: Continue anticoagulation with Xarelto Continue IV Lasix Daily weights Accurate I&O Monitor kidney function 2D echo ordered. Await results. Further recommendations pending patient course Nurse practitioner note has been reviewed by physician. Signing provider agrees with the documented findings, assessment, and plan of care. Objective - Vital Signs Vital signs: Vital Signs Temp 96.6 F L 01/06/21 08:00 Pulse 80 01/06/21 08:00 Resp 16 01/06/21 08:00 BP 135/61 01/06/21 08:00 Pulse Ox 92 L 01/06/21 08:00 Intake & Output 01/05/21 01/06/21 01/06/21 18:59 06:59 18:59 Intake Total 940 480 Output Total 5150 1225 1999 Balance -4210 -745 -1999 Weight 189.3 kg 185.973 kg Intake: Oral 940 480 Output: Urine 5150 1225 1999 Other: Voiding Method Indwelling Catheter Indwelling Catheter # Voids 1 # Bowel Movements 2 - Labs CBC & Chem 7: 01/06/21 07:08 01/06/21 07:08 Labs: Abnormal Lab Results - Last 24 Hours (Table) 01/05/21 01/06/21 Range/Units 11:01 07:08 Carbon Dioxide 33 H (22-30) mmol/L BUN 18 H (7-17) mg/dL Glucose 102 H (74-99) mg/dL
[2021-01-06] MEDS ORDERED: POTASSIUM CHLORIDE ER 20 MEQ TAB.ER PO STA (11:27)
--- NOTE | 2021-01-06 11:59 | P.PN ---
Subjective Patient developed a 60-year-old pleasant obese female came in because of for right knee pain and she felt like her right knee gave up. Patient has severe osteoarthritis of the right knee able to bear weight and no evidence of any tendinous injury. Although patient was admitted for possibly of heart failure exacerbation. Patient does have extensive related edema which is chronic and nonpitting from her lymphedema. Patient denied any orthopnea paroxysmal nocturnal dyspnea. Patient was given Lasix with significant urine output patient BNP is only 60 chest x-ray looked like CHF because of her obesity and soft tissue interference. Patient denied any fever chills patient and nausea vomiting chest pain palpitations. Patient does admit to mild increase in his in her bilateral lower exudative swelling 01/06/2021 Patient has significant urine output compared to yesterday kidney function remains stable because of which will continue with the IV Lasix and patient's edema significantly improved. I echocardiogram is still pending. Constitutional: Denied any fatigue denied any fever. Cardio vascular: denied any chest pain, palpitations Gastrointestinal denied any nausea vomiting Pulmonary: Denied any shortness of breath cough Neurologic denied any new focal deficits All inpatient medications were reviewed and appropriate changes in these medications as dictated in the interval history and assessment and plan. PHYSICAL EXAMINATION: GENERAL: The patient is alert and oriented x3, not in any acute distress. Well developed, well nourished. HEENT: Pupils are round and equally reacting to light. EOMI. No scleral icterus. No conjunctival pallor. Normocephalic, atraumatic. No pharyngeal erythema. No thyromegaly. CARDIOVASCULAR: S1 and S2 present. No murmurs, rubs, or gallops. PULMONARY: Chest is clear to auscultation, no wheezing or crackles. ABDOMEN: Soft, nontender, nondistended, normoactive bowel sounds. No palpable organomegaly. MUSCULOSKELETAL: Mentioned in HPI EXTREMITIES: No cyanosis, clubbing, or pedal edema. NEUROLOGICAL: Gross neurological examination did not reveal any focal deficits. SKIN: No rashes. Assessment and plan -Bilateral lower extremity swelling most probably secondary to lymphedema there may be a competent of mild heart failure exacerbation mostly diastolic dysfunction patient will be continued on IV Lasix pending patient has significant urine output because of which will continue with IV Lasix today possibly of discharge tomorrow -Severe osteoarthritis multiple joints and pain in the right knee secondary to severe osteoarthritis -Chronic lymphedema patient is about to follow with the lymphedema specialist and he was to [place] -History of pulmonary embolism for which patient is on Xarelto which will be continued -Hypertension -Morbid obesity DVT prophylaxis: Patient is already on anticoagulation which will be continued Objective - Vital Signs Vital signs: Vital Signs Temp 96.6 F L 01/06/21 08:00 Pulse 80 01/06/21 08:00 Resp 16 01/06/21 08:00 BP 135/61 01/06/21 08:00 Pulse Ox 92 L 01/06/21 08:00 Intake & Output 01/05/21 01/06/21 01/06/21 18:59 06:59 18:59 Intake Total 940 480 Output Total 5150 1225 1999 Balance -4210 -745 -1999 Weight 189.3 kg 185.973 kg Intake: Oral 940 480 Output: Urine 5150 1225 1999 Other: Voiding Method Indwelling Catheter Indwelling Catheter Indwelling Catheter # Voids 1 # Bowel Movements 2 - Labs CBC & Chem 7: 01/06/21 07:08 01/06/21 07:08 Labs: Abnormal Lab Results - Last 24 Hours (Table) 01/06/21 Range/Units 07:08 Carbon Dioxide 33 H (22-30) mmol/L BUN 18 H (7-17) mg/dL
--- NOTE | 2021-01-06 12:03 | P.DS ---
Providers Date of admission: 01/04/21 18:51 Attending physician: Imelda Yi Consults: 01/04/21 18:45 Consult Physician Routine Consulting Provider: [facility] Consult Reason/Comments: CHF Do you want consulting provider notified?: Yes Primary care physician: Physician Nonstaff Hospital Course: 89-year-old pleasant female came in none with complaints of transient episode of right-sided facial numbness and right hand numbness along with headache which she never had. Headache has been going on for last 3-4 days. Patient was having tingling numbness of the face as well as the right hand without any weakness. Patient denied any nausea vomiting. Patient apparently had a syncopal episode patient had multiple syncopal episodes in the past. EKG showed normal sinus rhythm with the supper abnormal ST-T waves in the anterolateral leads. I do not have any other EKGs to compare with although patient doesn't have any chest pain and troponins negative. Patient's symptoms presently res olved. Patient is also describing possible visual deficit, history was not clear regarding this. 01/06/2021 As per neurology patient has acute to subacute several vascular accident in the left occipital lobe and they're recommending aspirin patient LDL is elevated to 136 patient was started on statin. Patient symptoms presently resolved tingling numbness on the right side resolved and the her visual problems improved. Echocardiac exam is still pending we will await the results of echocardiogram if it's okay patient will be discharged today on aspirin 81 mg and a statin. PHYSICAL EXAMINATION: GENERAL: The patient is alert and oriented x3, not in any acute distress. Well developed, well nourished. HEENT: Pupils are round and equally reacting to light. EOMI. No scleral icterus. No conjunctival pallor. Normocephalic, atraumatic. No pharyngeal erythema. No thyromegaly. CARDIOVASCULAR: S1 and S2 present. No murmurs, rubs, or gallops. PULMONARY: Chest is clear to auscultation, no wheezing or crackles. ABDOMEN: Soft, nontender, nondistended, normoactive bowel sounds. No palpable organomegaly. MUSCULOSKELETAL: No joint swelling or deformity. EXTREMITIES: No cyanosis, clubbing, or pedal edema. NEUROLOGICAL: Gross neurological examination did not reveal any focal deficits. SKIN: No rashes. 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 as per the CAT scan which explains her visual symptoms but not the tingling and numbness in the right side all the SYMPTOMS resolved at this time patient doesn't have any atrial fibrillation at this time echo cardiac exam is pending and patient will be continued on 81 mg of aspirin and a statin and patient will be discharged today -Multiple syncopes in the past cardiac exam is pending no significant rhythm abnormality on telemetry -Hypertension Plan - Discharge Summary Discharge Rx Participant: Yes New Discharge Prescriptions: No Action Rivaroxaban [Xarelto] 20 mg PO DAILY Losartan Potassium 100 mg PO DAILY Omeprazole 20 mg PO DAILY Nystatin [Nystop] 1 applic TOPICAL BID diphenhydrAMINE [Benadryl] 25 mg PO QID PRN PRN Reason: Itching Terbinafine [LamISIL] 250 mg PO DAILY Ketoconazole 2% Cream [Nizoral 2%] 1 applic TOPICAL BID Ibuprofen 800 mg PO Q8H PRN PRN Reason: Pain Acetaminophen with Codeine [Tylenol w/Codeine #4 Tablet] 1 tab PO BID PRN PRN Reason: Pain Discharge Medication List Losartan Potassium 100 mg PO DAILY 09/14/14 [History] Rivaroxaban [Xarelto] 20 mg PO DAILY 09/14/14 [History] Acetaminophen with Codeine [Tylenol w/Codeine #4 Tablet] 1 tab PO BID PRN 01/04/21 [History] Ibuprofen 800 mg PO Q8H PRN 01/04/21 [History] Ketoconazole 2% Cream [Nizoral 2%] 1 applic TOPICAL BID 01/04/21 [History] Nystatin [Nystop] 1 applic TOPICAL BID 01/04/21 [History] Omeprazole 20 mg PO DAILY 01/04/21 [History] Terbinafine [LamISIL] 250 mg PO DAILY 01/04/21 [History] diphenhydrAMINE [Benadryl] 25 mg PO QID PRN 01/04/21 [History] Follow up Appointment(s)/Referral(s): [facility] [NON-STAFF] - None,Stated [REFERRING] - 1-[address],[place] [NON-STAFF] -
--- NOTE | 2021-01-06 12:36 | ECHOF ---
Referral Reason:LV functino MEASUREMENTS -------- HEIGHT: 170.2 cm WEIGHT: 189.1 kg BP: IVSd: 1.3 cm (0.6 - 1.1) LVIDd: 4.8 cm (3.9 - 5.3) LVPWd: 1.5 cm (0.6 - 1.1) EDV(Teich): 107 ml IVSs: 1.9 cm LVIDs: 3.0 cm LVPWs: 1.6 cm %IVS Thck: 47 % ESV(Teich): 36 ml EF(Teich): 67 % %FS: 37 % SV(Teich): 72 ml RVIDd: 2.7 cm (< 3.3) Ao Diam: 3.3 cm (2.0 - 3.7) LA Diam: 3.8 cm (2.7 - 3.8) AV Cusp: 2.2 cm (1.5 - 2.6) MV E Jorge: 1.18 m/s MV DecT: 250 ms MV Dec Sum[place]: 4.7 m/s MV A Jorge: 0.85 m/s MV E/A Ratio: 1.39 MV PHT: 72 ms MR Vmax: 4.62 m/s MR maxP.51 mmHg LVOT Vmax: 1.17 m/s LVOT maxP.43 mmHg AV Vmax: 1.84 m/s AV maxP.54 mmHg AV Vmax: 1.84 m/s AV Vmean: 1.28 m/s AV maxP.54 mmHg AV meanP.58 mmHg AV Env.Ti: 291 ms AV VTI: 37.3 cm TR Vmax: 2.48 m/s TR maxP.68 mmHg RAP: 5.00 mmHg RVSP: 29.68 mmHg FINDINGS -------- This was a technically difficult study with suboptimal views. The left ventricular size is normal. There is moderate concentric left ventricular hypertrophy. O verall left ventricular systolic function is normal with, an EF between 55 - 60 %. The right ventricle is normal in size. The left atrial size is normal. The right atrial size is normal. Lumason used The aortic valve was not well visualized. The mitral valve was not well visualized. There is trace mitral regurgitation. The tricuspid valve appears structurally normal. Mild tricuspid regurgitation present. Right vent ricular systolic pressure is normal at < 35 mmHg. There is no pulmonic regurgitation present. The aortic root size is normal. IVC Not well visulized. There is no pericardial effusion. CONCLUSIONS -------- 1. The left ventricular size is normal. 2. There is moderate concentric left ventricular hypertrophy. 3. Overall left ventricular systolic function is normal with, an EF between 55 - 60 %. 4. There is trace mitral regurgitation. 5. Mild tricuspid regurgitation present. 6. There is no pericardial effusion. CLINICAL QUALITY ANALYST: Elsy Pacheco RDCS
[2021-01-07] MEDS: FUROSEMIDE 10 MG/ML 4 ML VIAL IV SCH ×2 (06:31→18:48)
[2021-01-07] MEDS: PANTOPRAZOLE 40 MG TABLET PO SCH (06:32)
[2021-01-07] MEDS: LOSARTAN 50 MG TAB PO SCH (09:40)
[2021-01-07] MEDS: NYSTATIN 100,000 UNIT/GM POWD 15 GM TOPICAL SCH ×2 (09:40→19:50)
[2021-01-07] MEDS: CLOTRIMAZOLE 1% CREAM 30 GM TUBE TOPICAL SCH ×2 (09:40→19:50)
[2021-01-07] MEDS: RIVAROXABAN 20 MG TAB PO SCH (09:40)
[2021-01-07] MEDS: TERBINAFINE 250 MG TAB PO SCH (09:40)
[2021-01-07 09:49] LABS: African American GFR (CKD) >90 (>60 ml/min/1.73 sqM); Anion Gap 6 mmol/L; Blood Urea Nitrogen 17 mg/dL (7-17); Calcium 9.2 mg/dL (8.4-10.2); Carbon Dioxide 36 mmol/L (22-30); Chloride 97 mmol/L (98-107); Glucose 104 mg/dL (74-99); Non-African American GFR(CKD) >90 (>60 ml/min/1.73 sqM); Potassium 3.3 mmol/L (3.5-5.1); Sodium 139 mmol/L (137-145)
[2021-01-07] MEDS: Acetaminophen-Codeine 300-30mg TAB PO PRN (11:11)
--- NOTE | 2021-01-07 14:39 | P.PN ---
Subjective Progress Note Date: 01/07/21 HISTORY OF PRESENT ILLNESS: This is a 60-year-old female with a past medical history significant for hypertension and pulmonary embolism on anticoagulation with Xarelto. Patient does not follow with a pocketed spring assembler. We have been asked to see the patient in consultation for congestive heart failure. Patient examined at the bedside. Patient states she has chronic lymphedema in her bilateral lower extremities. She is trying to find a lymphedema specialist in the area to help manage this. Patient states over the past couple days the swelling in her right lower extremity has gotten worse and she has been unable to bend her leg which prompted her to come to the emergency room if she has been unable to ambulate. The patient currently denies chest pain or pressure. She denies shortness of breath. Chest x-ray completed in the emergency room revealed evidence of congestive heart failure. Patient's BNP was within normal limits at 86. She is currently on 2 L nasal cannula with oxygen saturations greater than 92%. Patient was found to be mildly hypoxic on room air. Patient denies ever seen a pocketed spring assembler in the past. She denies having a stress test performed previously. She denies history of congestive heart failure EKG reveals sinus mechanism with Q waves in inferior leads. No signs of acute ischemia Chest xray mild to moderate interstitial edema with accompanying mild hazy opacities. Impression mild to moderate congestive heart failure. Laboratory data: WBC 7.3. Hemoglobin 11.0. Platelet count 301. Sodium 144. Potassium 4.3. BUN 18. Creatinine 0.66. Troponin negative 1. BNP 86. Current home cardiac medications include Xarelto 20 mg daily and losartan 100 mg daily 01/06/2021 Patient examined at the bedside this morning. Patient denies chest pain or pressure. She currently denies shortness of breath. She remains on IV lasix. Vital signs are stable. Patient is on 2L with oxygen saturations greater than 92%. BUN 18. Creatinine 0.53. 01/07/2021 Patient examined this morning at the bedside. Patient denies chest pain or pressure. She states her shortness of breath has improved. She states she has been able to get up and ambulate today now that her swelling in her legs has improved. She remains on IV Lasix. Echocardiogram completed revealed ejection fraction 55-60%. Trace mitral regurgitation. Mild tricuspid regurgitation. PHYSICAL EXAM: VITAL SIGNS: Reviewed. GENERAL: Well-developed in no acute distress. HEENT: Head is normocephalic. Pupils are equal, round. Sclerae anicteric. Mucous membranes of the mouth are moist. Neck supple. No JVD or thyromegaly LUNGS: Respirations even and unlabored. Lungs diminished bilaterally. HEART: Regular rate and rhythm. S1 and S2 heard. ABDOMEN: Soft. Nondistended. Nontender. EXTREMITIES: Normal range of motion. No clubbing or cyanosis. Peripheral pulses intact. Bilateral lower extremity edema with evidence of lymphedema NEUROLOGIC: Awake and alert. Oriented x 3. ASSESSMENT: Chronic bilateral lower extremity edema secondary to lymphedema Mild acute CHF, per CXR, normal BNP Hypertension History of PE, on anticoagulation with Xarelto PLAN: Continue anticoagulation with Xarelto Continue IV Lasix Daily weights Accurate I&O Monitor kidney function Further recommendations pending patient course Nurse practitioner note has been reviewed by physician. Signing provider agrees with the documented findings, assessment, and plan of care. Objective - Vital Signs Vital signs: Vital Signs Temp 98.6 F 01/07/21 08:00 Pulse 84 01/07/21 12:00 Resp 18 01/07/21 04:00 BP 108/57 01/07/21 12:00 Pulse Ox 92 L 01/07/21 12:00 Intake & Output 01/06/21 01/07/21 01/07/21 18:59 06:59 18:59 Intake Total 480 Output Total 3700 1600 1600 Balance -3220 -1600 -1600 Weight 174 kg Intake: Oral 480 Output: Urine 3700 1600 1600 Other: Voiding Method Indwelling Catheter Indwelling Catheter Indwelling Catheter - Labs CBC & Chem 7: 01/06/21 07:08 01/07/21 08:53 Labs: Abnormal Lab Results - Last 24 Hours (Table) 01/07/21 Range/Units 08:53 Potassium 3.3 L (3.5-5.1) mmol/L Chloride 97 L (98-107) mmol/L Carbon Dioxide 36 H (22-30) mmol/L Glucose 104 H (74-99) mg/dL
[2021-01-07] MEDS ORDERED: POTASSIUM CHLORIDE ER 20 MEQ TAB.ER PO STA ×2 (15:20)
--- NOTE | 2021-01-07 15:24 | P.PN ---
Subjective Patient developed a 60-year-old pleasant obese female came in because of for right knee pain and she felt like her right knee gave up. Patient has severe osteoarthritis of the right knee able to bear weight and no evidence of any tendinous injury. Although patient was admitted for possibly of heart failure exacerbation. Patient does have extensive related edema which is chronic and nonpitting from her lymphedema. Patient denied any orthopnea paroxysmal nocturnal dyspnea. Patient was given Lasix with significant urine output patient BNP is only 60 chest x-ray looked like CHF because of her obesity and soft tissue interference. Patient denied any fever chills patient and nausea vomiting chest pain palpitations. Patient does admit to mild increase in his in her bilateral lower exudative swelling 01/06/2021 Patient has significant urine output compared to yesterday kidney function remains stable because of which will continue with the IV Lasix and patient's edema significantly improved. I echocardiogram is still pending. 01/07/2021 Patient peripheral edema significantly improved patient lost a significant weight and continues to have a significant urine output. Patient desaturates without oxygen because of which are my plan is to keep her on IV Lasix today to recheck the saturations tomorrow. Unsure whether the pulmonary edema is contributing to her desaturations. Her hypoxia can be secondary to restrictive lung disease. We'll recheck the basic metabolic profile tomorrow and replace the potassium which is low. Losartan will be held as well because of low normal blood pressures and considering that she is having significant diuresis patient blood pressure can drop significantly. Echocardiogram showed normal ejection fraction moderate concentric left ventricular hypertrophy. RVSP less than 35 Constitutional: Denied any fatigue denied any fever. Cardio vascular: denied any chest pain, palpitations Gastrointestinal denied any nausea vomiting Pulmonary: Denied any shortness of breath cough Neurologic denied any new focal deficits All inpatient medications were reviewed and appropriate changes in these medications as dictated in the interval history and assessment and plan. PHYSICAL EXAMINATION: GENERAL: The patient is alert and oriented x3, not in any acute distress. Well developed, well nourished. Morbidly obese HEENT: Pupils are round and equally reacting to light. EOMI. No scleral icterus. No conjunctival pallor. Normocephalic, atraumatic. No pharyngeal erythema. No thyromegaly. CARDIOVASCULAR: S1 and S2 present. No murmurs, rubs, or gallops. PULMONARY: Chest is clear to auscultation, no wheezing or crackles. ABDOMEN: Soft, nontender, nondistended, normoactive bowel sounds. No palpable organomegaly. MUSCULOSKELETAL: Mentioned in HPI EXTREMITIES: No cyanosis, clubbing, patient's pedal edema significantly improved but still has significant lymphedema NEUROLOGICAL: Gross neurological examination did not reveal any focal deficits. SKIN: No rashes. Assessment and plan -Bilateral lower extremity swelling most probably secondary to lymphedema there may be a competent of mild heart failure exacerbation mostly diastolic dysfunction patient will be continued on IV Lasix pending patient has significant urine output because of which will continue with IV Lasix today poss ibly of discharge tomorrow -Mild hypoxia can be seconded obesity hypoventilation with mild pulmonary edema patient will be continued on IV Lasix as mentioned above. -Severe osteoarthritis multiple joints and pain in the right knee secondary to severe osteoarthritis -Chronic lymphedema patient will follow with the lymphedema specialist at [facility] -History of pulmonary embolism for which patient is on Xarelto which will be continued -Hypertension -Morbid obesity DVT prophylaxis: Patient is already on anticoagulation which will be continued Objective - Vital Signs Vital signs: Vital Signs Temp 98.6 F 01/07/21 08:00 Pulse 84 01/07/21 12:00 Resp 18 01/07/21 04:00 BP 108/57 01/07/21 12:00 Pulse Ox 92 L 01/07/21 12:00 Intake & Output 01/06/21 01/07/21 01/07/21 18:59 06:59 18:59 Intake Total 480 Output Total 3700 1600 1600 Balance -3220 -1600 -1600 Weight 174 kg Intake: Oral 480 Output: Urine 3700 1600 1600 Other: Voiding Method Indwelling Catheter Indwelling Catheter Indwelling Catheter - Labs CBC & Chem 7: 01/06/21 07:08 01/07/21 08:53 Labs: Abnormal Lab Results - Last 24 Hours (Table) 01/07/21 Range/Units 08:53 Potassium 3.3 L (3.5-5.1) mmol/L Chloride 97 L (98-107) mmol/L Carbon Dioxide 36 H (22-30) mmol/L Glucose 104 H (74-99) mg/dL
[2021-01-08] MEDS: PANTOPRAZOLE 40 MG TABLET PO SCH (05:23)
[2021-01-08] MEDS: FUROSEMIDE 10 MG/ML 4 ML VIAL IV SCH ×2 (05:23→19:33)
[2021-01-08] MEDS: MORPHINE SULFATE 4 MG/ML SYRINGE IVP PRN ×4 (05:24→19:38)
[2021-01-08] MEDS: NYSTATIN 100,000 UNIT/GM POWD 15 GM TOPICAL SCH ×2 (08:22→19:30)
[2021-01-08] MEDS: RIVAROXABAN 20 MG TAB PO SCH (08:22)
[2021-01-08] MEDS: CLOTRIMAZOLE 1% CREAM 30 GM TUBE TOPICAL SCH ×2 (08:22→19:33)
[2021-01-08] MEDS: TERBINAFINE 250 MG TAB PO SCH (08:22)
[2021-01-08 08:55] LABS: African American GFR (CKD) >90 (>60 ml/min/1.73 sqM); Anion Gap 7 mmol/L; Blood Urea Nitrogen 18 mg/dL (7-17); Calcium 9.1 mg/dL (8.4-10.2); Carbon Dioxide 37 mmol/L (22-30); Chloride 94 mmol/L (98-107); Glucose 96 mg/dL (74-99); Magnesium 1.5 mg/dL (1.6-2.3); Non-African American GFR(CKD) >90 (>60 ml/min/1.73 sqM); Potassium 3.8 mmol/L (3.5-5.1); Sodium 138 mmol/L (137-145)
[2021-01-08] MEDS ORDERED: MAGNESIUM SULFATE-D5W PMX 1 GM in DEXTROSE/WATER 1 100ML.BAG IVPB ONE (09:58)
--- NOTE | 2021-01-08 13:45 | P.PN ---
Subjective Progress Note Date: 01/08/21 HISTORY OF PRESENT ILLNESS: This is a 60-year-old female with a past medical history significant for hypertension and pulmonary embolism on anticoagulation with Xarelto. Patient does not follow with a airplane designer. We have been asked to see the patient in consultation for congestive heart failure. Patient examined at the bedside. Patient states she has chronic lymphedema in her bilateral lower extremities. She is trying to find a lymphedema specialist in the area to help manage this. Patient states over the past couple days the swelling in her right lower extremity has gotten worse and she has been unable to bend her leg which prompted her to come to the emergency room if she has been unable to ambulate. The patient currently denies chest pain or pressure. She denies shortness of breath. Chest x-ray completed in the emergency room revealed evidence of congestive heart failure. Patient's BNP was within normal limits at 86. She is currently on 2 L nasal cannula with oxygen saturations greater than 92%. Patient was found to be mildly hypoxic on room air. Patient denies ever seen a airplane designer in the past. She denies having a stress test performed previously. She denies history of congestive heart failure EKG reveals sinus mechanism with Q waves in inferior leads. No signs of acute ischemia Chest xray mild to moderate interstitial edema with accompanying mild hazy opacities. Impression mild to moderate congestive heart failure. Laboratory data: WBC 7.3. Hemoglobin 11.0. Platelet count 301. Sodium 144. Potassium 4.3. BUN 18. Creatinine 0.66. Troponin negative 1. BNP 86. Current home cardiac medications include Xarelto 20 mg daily and losartan 100 mg daily 01/06/2021 Patient examined at the bedside this morning. Patient denies chest pain or pressure. She currently denies shortness of breath. She remains on IV lasix. Vital signs are stable. Patient is on 2L with oxygen saturations greater than 92%. BUN 18. Creatinine 0.53. 01/07/2021 Patient examined this morning at the bedside. Patient denies chest pain or pressure. She states her shortness of breath has improved. She states she has been able to get up and ambulate today now that her swelling in her legs has improved. She remains on IV Lasix. Echocardiogram completed revealed ejection fraction 55-60%. Trace mitral regurgitation. Mild tricuspid regurgitation. 01/08/2021 Patient examined this morning at the bedside. Patient denies chest pain or pressure. She denies shortness of breath. She remains on nasal cannula. Patient remains on IV Lasix. Her lower extremity swelling has significantly improved. PHYSICAL EXAM: VITAL SIGNS: Reviewed. GENERAL: Well-developed in no acute distress. HEENT: Head is normocephalic. Pupils are equal, round. Sclerae anicteric. Mucous membranes of the mouth are moist. Neck supple. No JVD or thyromegaly LUNGS: Respirations even and unlabored. Lungs diminished bilaterally. HEART: Regular rate and rhythm. S1 and S2 heard. ABDOMEN: Soft. Nondistended. Nontender. EXTREMITIES: Normal range of motion. No clubbing or cyanosis. Peripheral pulses intact. Bilateral lower extremity edema with evidence of lymphedema NEUROLOGIC: Awake and alert. Oriented x 3. ASSESSMENT: Chronic bilateral lower extremity edema secondary to lymphedema Mild acute CHF, per CXR, normal BNP Hypertension History of PE, on anticoagulation with Xarelto PLAN: Continue anticoagulation with Xarelto Continue IV Lasix while in the hospital. Patient may be discharged and transitioned to oral Lasix at any time from a cardiology perspective We will sign off. Please reconsult if needed. Nurse practitioner note has been reviewed by physician. Signing provider agrees with the documented findings, assessment, and plan of care. Objective - Vital Signs Vital signs: Vital Signs Temp 97.1 F L 01/07/21 19:51 Pulse 86 01/08/21 08:00 Resp 16 01/08/21 08:00 BP 97/52 01/08/21 08:00 Pulse Ox 93 L 01/08/21 08:00 Intake & Output 01/07/21 01/08/21 01/08/21 18:59 06:59 18:59 Intake Total 240 Output Total 1600 2760 1400 Balance -1360 -2760 -1400 Weight 159.5 kg Intake: Oral 240 Output: Urine 1600 2760 1400 Uretheral (You) 1300 Other: Voiding Method Indwelling Catheter Indwelling Catheter Indwelling Catheter # Voids 2 - Labs CBC & Chem 7: 01/06/21 07:08 01/08/21 08:12 Labs: Abnormal Lab Results - Last 24 Hours (Table) 01/08/21 Range/Units 08:12 Chloride 94 L (98-107) mmol/L Carbon Dioxide 37 H (22-30) mmol/L BUN 18 H (7-17) mg/dL Magnesium 1.5 L (1.6-2.3) mg/dL
--- NOTE | 2021-01-08 14:54 | P.PN ---
Subjective Patient developed a 60-year-old pleasant obese female came in because of for right knee pain and she felt like her right knee gave up. Patient has severe osteoarthritis of the right knee able to bear weight and no evidence of any tendinous injury. Although patient was admitted for possibly of heart failure exacerbation. Patient does have extensive related edema which is chronic and nonpitting from her lymphedema. Patient denied any orthopnea paroxysmal nocturnal dyspnea. Patient was given Lasix with significant urine output patient BNP is only 60 chest x-ray looked like CHF because of her obesity and soft tissue interference. Patient denied any fever chills patient and nausea vomiting chest pain palpitations. Patient does admit to mild increase in his in her bilateral lower exudative swelling 01/06/2021 Patient has significant urine output compared to yesterday kidney function remains stable because of which will continue with the IV Lasix and patient's edema significantly improved. I echocardiogram is still pending. 01/07/2021 Patient peripheral edema significantly improved patient lost a significant weight and continues to have a significant urine output. Patient desaturates without oxygen because of which are my plan is to keep her on IV Lasix today to recheck the saturations tomorrow. Unsure whether the pulmonary edema is contributing to her desaturations. Her hypoxia can be secondary to restrictive lung disease. We'll recheck the basic metabolic profile tomorrow and replace the potassium which is low. Losartan will be held as well because of low normal blood pressures and considering that she is having significant diuresis patient blood pressure can drop significantly. Echocardiogram showed normal ejection fraction moderate concentric left ventricular hypertrophy. RVSP less than 35 01/08/2021 Patient with no dyspnea at rest, she was complaining of from exertional dyspnea however she spent most of her time in the bed. Chest pain or any other complaint. He is hemodynamically stable. You catheter is in place. Discussed with the patient today and she is willing to go to subacute rehab upon discharge. On IV Lasix 40 mg twice daily and switched to oral Lasix upon discharge. [employer] team signed off already She's continued on xarelto, home medication Objective - Vital Signs Vital signs: Vital Signs Temp 98.4 F 01/08/21 14:04 Pulse 85 01/08/21 14:04 Resp 18 01/08/21 14:04 BP 112/71 01/08/21 14:04 Pulse Ox 94 L 01/08/21 14:04 Intake & Output 01/07/21 01/08/21 01/08/21 18:59 06:59 18:59 Intake Total 240 Output Total 1600 2760 1400 Balance -1360 -2760 -1400 Weight 159.5 kg Intake: Oral 240 Output: Urine 1600 2760 1400 Uretheral (You) 1300 Other: Voiding Method Indwelling Catheter Indwelling Catheter Indwelling Catheter # Voids 2 - Exam -GENERAL: The patient is alert and oriented x3, not in any acute distress. Morbidly obese HEENT: Pupils are round and equally reacting to light. EOMI. No scleral icterus. No conjunctival pallor. Normocephalic, atraumatic. No pharyngeal erythema. No thyromegaly. CARDIOVASCULAR: S1 and S2 present. No murmurs, rubs, or gallops. PULMONARY: Chest is clear to auscultation, no wheezing or crackles. -ABDOMEN: Soft, nontender, nondistended, normoactive bowel sounds. No palpable organomegaly. You catheter is in place MUSCULOSKELETAL: No joint swelling or deformity. EXTREMITIES: No cyanosis, clubbing, or pedal edema. NEUROLOGICAL: Gross neurological examination did not reveal any focal deficits. SKIN: No rashes. no petechiae. - Labs CBC & Chem 7: 01/06/21 07:08 01/08/21 08:12 Labs: Abnormal Lab Results - Last 24 Hours (Table) 01/08/21 Range/Units 08:12 Chloride 94 L (98-107) mmol/L Carbon Dioxide 37 H (22-30) mmol/L BUN 18 H (7-17) mg/dL Magnesium 1.5 L (1.6-2.3) mg/dL Assessment and Plan Assessment: -Bilateral lower extremity swelling most probably secondary to lymphedema there may be a competent of mild heart failure exacerbation mostly diastolic dysfunction patient will be continued on IV Lasix pending patient has significant urine output because of which will continue with IV Lasix today possibly of discharge on Sunday to rehab -Generalized weakness, will benefit from ECF upon discharge. Patient is willing to go to rehab -Severe osteoarthritis multiple joints and pain in the right knee secondary to severe osteoarthritis -Chronic lymphedema patient will follow with the lymphedema specialist at [facility] -History of pulmonary embolism for which patient is on Xarelto which will be continued -Hypertension -Morbid obesity DVT prophylaxis: Patient is already on anticoagulation which will be continued
[2021-01-09] MEDS: FUROSEMIDE 10 MG/ML 4 ML VIAL IV SCH ×2 (05:44→19:18)
[2021-01-09] MEDS: Acetaminophen-Codeine 300-30mg TAB PO PRN (05:47)
[2021-01-09] MEDS: RIVAROXABAN 20 MG TAB PO SCH (09:22)
[2021-01-09] MEDS: PANTOPRAZOLE 40 MG TABLET PO SCH (09:22)
[2021-01-09] MEDS: TERBINAFINE 250 MG TAB PO SCH (09:22)
[2021-01-09] MEDS: CLOTRIMAZOLE 1% CREAM 30 GM TUBE TOPICAL SCH ×2 (09:23→19:18)
[2021-01-09] MEDS: NYSTATIN 100,000 UNIT/GM POWD 15 GM TOPICAL SCH ×2 (09:23→19:17)
[2021-01-09] MEDS ORDERED: Potassium Replacement Protocol 1 EACH MISC MISCELLANE PRN (12:42)
[2021-01-09] MEDS ORDERED: Magnesium Replacement Protocol 1 EACH MISC MISCELLANE PRN (12:42)
--- NOTE | 2021-01-09 12:44 | P.PN ---
Subjective Patient developed a 60-year-old pleasant obese female came in because of for right knee pain and she felt like her right knee gave up. Patient has severe osteoarthritis of the right knee able to bear weight and no evidence of any tendinous injury. Although patient was admitted for possibly of heart failure exacerbation. Patient does have extensive related edema which is chronic and nonpitting from her lymphedema. Patient denied any orthopnea paroxysmal nocturnal dyspnea. Patient was given Lasix with significant urine output patient BNP is only 60 chest x-ray looked like CHF because of her obesity and soft tissue interference. Patient denied any fever chills patient and nausea vomiting chest pain palpitations. Patient does admit to mild increase in his in her bilateral lower exudative swelling 01/06/2021 Patient has significant urine output compared to yesterday kidney function remains stable because of which will continue with the IV Lasix and patient's edema significantly improved. I echocardiogram is still pending. 01/07/2021 Patient peripheral edema significantly improved patient lost a significant weight and continues to have a significant urine output. Patient desaturates without oxygen because of which are my plan is to keep her on IV Lasix today to recheck the saturations tomorrow. Unsure whether the pulmonary edema is contributing to her desaturations. Her hypoxia can be secondary to restrictive lung disease. We'll recheck the basic metabolic profile tomorrow and replace the potassium which is low. Losartan will be held as well because of low normal blood pressures and considering that she is having significant diuresis patient blood pressure can drop significantly. Echocardiogram showed normal ejection fraction moderate concentric left ventricular hypertrophy. RVSP less than 35 01/08/2021 Patient with no dyspnea at rest, she was complaining of from exertional dyspnea however she spent most of her time in the bed. Chest pain or any other complaint. He is hemodynamically stable. You catheter is in place. Discussed with the patient today and she is willing to go to subacute rehab upon discharge. On IV Lasix 40 mg twice daily and switched to oral Lasix upon discharge. [employer] team signed off already She's continued on xarelto, home medication 01/09/2021 Patient with known new complaints. She does not walk much so she cannot tell if her exertional dyspnea is improving however she feels comfortable at rest. Patient now wants to go to [facility] for rehab, which could not be done today because his weekend Patient also wants to keep her You catheter in and going to rehab She is currently on Lasix 40 mg IV twice daily and Xarelto monitor creatinine, potassium and magnesium and replace as appropriate per protocol Objective - Vital Signs Vital signs: Vital Signs Temp 98.8 F 01/09/21 08:00 Pulse 79 01/09/21 08:00 Resp 18 01/09/21 08:00 BP 107/69 01/09/21 08:00 Pulse Ox 94 L 01/09/21 08:00 Intake & Output 01/08/21 01/09/21 01/09/21 18:59 06:59 18:59 Output Total 1400 2625 Balance -1400 -2625 Output: Urine 1400 2625 Other: Voiding Method Indwelling Catheter Indwelling Catheter Indwelling Catheter # Bowel Movements 1 - Exam -GENERAL: The patient is alert and oriented x3, not in any acute distress. Mor bidly obese HEENT: Pupils are round and equally reacting to light. EOMI. No scleral icterus. No conjunctival pallor. Normocephalic, atraumatic. No pharyngeal erythema. No thyromegaly. CARDIOVASCULAR: S1 and S2 present. No murmurs, rubs, or gallops. PULMONARY: Chest is clear to auscultation, no wheezing or crackles. -ABDOMEN: Soft, nontender, nondistended, normoactive bowel sounds. No palpable o rganomegaly. You catheter is in place MUSCULOSKELETAL: No joint swelling or deformity. EXTREMITIES: No cyanosis, clubbing, or pedal edema. NEUROLOGICAL: Gross neurological examination did not reveal any focal deficits. SKIN: No rashes. no petechiae. - Labs CBC & Chem 7: 01/06/21 07:08 01/08/21 08:12 Assessment and Plan Assessment: -Bilateral lower extremity swelling most probably secondary to lymphedema there may be a competent of mild heart failure exacerbation mostly diastolic dysfunction patient will be continued on IV Lasix pending patient has significant urine output because of which will continue with IV Lasix today possibly of discharge on Sunday to rehab -Generalized weakness, will benefit from ECF upon discharge. Patient is willing to go to rehab -Severe osteoarthritis multiple joints and pain in the right knee secondary to severe osteoarthritis -Chronic lymphedema patient will follow with the lymphedema specialist at [facility] -History of pulmonary embolism for which patient is on Xarelto which will be continued -Hypertension -Morbid obesity DVT prophylaxis: Patient is already on anticoagulation which will be continued
[2021-01-09 13:43] LABS: African American GFR (CKD) >90 (>60 ml/min/1.73 sqM); Anion Gap 4 mmol/L; Blood Urea Nitrogen 23 mg/dL (7-17); Calcium 8.9 mg/dL (8.4-10.2); Carbon Dioxide 39 mmol/L (22-30); Chloride 93 mmol/L (98-107); Glucose 104 mg/dL (74-99); Magnesium 1.8 mg/dL (1.6-2.3); Non-African American GFR(CKD) >90 (>60 ml/min/1.73 sqM); Potassium 3.8 mmol/L (3.5-5.1); Sodium 136 mmol/L (137-145)
[2021-01-10] MEDS: MORPHINE SULFATE 4 MG/ML SYRINGE IVP PRN ×2 (00:08→08:22)
[2021-01-10 03:55] VITALS: TEMP 98.4
[2021-01-10] MEDS: FUROSEMIDE 10 MG/ML 4 ML VIAL IV SCH (05:56)
[2021-01-10] MEDS: diphenhydrAMINE 25 MG CAP PO PRN (05:58)
[2021-01-10] MEDS: Acetaminophen-Codeine 300-30mg TAB PO PRN (05:59)
[2021-01-10 08:10] VITALS: BP 122/77; PULSE 74; RESP 18
[2021-01-10] MEDS: PANTOPRAZOLE 40 MG TABLET PO SCH (08:17)
[2021-01-10] MEDS: NYSTATIN 100,000 UNIT/GM POWD 15 GM TOPICAL SCH (08:17)
[2021-01-10] MEDS: RIVAROXABAN 20 MG TAB PO SCH (08:17)
[2021-01-10] MEDS: CLOTRIMAZOLE 1% CREAM 30 GM TUBE TOPICAL SCH (08:17)
[2021-01-10] MEDS: TERBINAFINE 250 MG TAB PO SCH (08:18)
--- NOTE | 2021-01-10 11:28 | P.DS ---
Providers Date of admission: 01/04/21 18:51 Attending physician: Imelda Yi Primary care physician: Physician Nonstaff Hospital Course: Diagnoses: -Bilateral lower extremity swelling most probably secondary to lymphedema , there may be a competent of mild heart failure exacerbation mostly diastolic dysfunction but felt that this less likely , significantly improved with diuretics -Generalized weakness, will benefit from ECF upon discharge. Patient is willing to go to rehab -Severe osteoarthritis multiple joints and pain in the right knee secondary to severe osteoarthritis -Chronic lymphedema patient will follow with the lymphedema specialist at [facility] -History of pulmonary embolism for which patient is on Xarelto which will be continued -Hypertension -Morbid obesity Hospital course: Patient developed a 60-year-old pleasant obese female came in because of for right knee pain and she felt like her right knee gave up. Patient has severe osteoarthritis of the right knee able to bear weight and no evidence of any tendinous injury. Although patient was admitted for possibly of heart failure exacerbation. Patient does have extensive related edema which is chronic and nonpitting from her lymphedema. Patient denied any orthopnea paroxysmal nocturnal dyspnea. Patient was given Lasix with significant urine output patient BNP is only 60 chest x-ray looked like CHF because of her obesity and soft tissue interference. Patient denied any fever chills patient and nausea vomiting chest pain palpitations. Patient does admit to mild increase in his in her bilateral lower swelling which is improved with diuresis. Home medication Losartan was held because of low normal blood pressures and considering that she is having significant diuresis patient blood pressure can drop significantly. Echocardiogram showed normal ejection fraction moderate concentric left ventricular hypertrophy. RVSP less than 35 Patient wanted to keep the You catheter because she was on diuresis. Patient is back to baseline and improved Patient was cleared for discharge by post secondary professional Problems and management plan were discussed with the patient and he verbalized understanding and acceptance Patient was found stable and can be discharged home however he needs follow-up as an outpatient. Patient was instructed to follow up with PCP within one week and patient agrees Physical exam -Gen: patient is a AAOx3, no distress. Obese CVS: S1-S2, RRR, no murmur Lungs: B/L CTA, no wheezing -Abdomen: soft, no distention, no tenderness, positive bowel sounds. You catheter is in place -Extremity:Mild bilateral leg edema. No induration Time spent more than 35 minutes Plan - Discharge Summary Discharge Rx Participant: Yes New Discharge Prescriptions: No Action Rivaroxaban [Xarelto] 20 mg PO DAILY Losartan Potassium 100 mg PO DAILY Omeprazole 20 mg PO DAILY Nystatin [Nystop] 1 applic TOPICAL BID diphenhydrAMINE [Benadryl] 25 mg PO QID PRN PRN Reason: Itching Terbinafine [LamISIL] 250 mg PO DAILY Ketoconazole 2% Cream [Nizoral 2%] 1 applic TOPICAL BID Ibuprofen 800 mg PO Q8H PRN PRN Reason: Pain Acetaminophen with Codeine [Tylenol w/Codeine #4 Tablet] 1 tab PO BID PRN PRN Reason: Pain Discharge Medication List Losartan Potassium 100 mg PO DAILY 09/14/14 [History] Rivaroxaban [Xarelto] 20 mg PO DAILY 09/14/14 [History] Acetaminophen with Codeine [Tylenol w/Codeine #4 Tablet] 1 tab PO BID PRN 01/04/21 [History] Ibuprofen 800 mg PO Q8H PRN 01/04/21 [History] Ketoconazole 2% Cream [Nizoral 2%] 1 applic TOPICAL BID 01/04/21 [History] Nystatin [Nystop] 1 applic TOPICAL BID 01/04/21 [History] Omeprazole 20 mg PO DAILY 01/04/21 [History] Terbinafine [LamISIL] 250 mg PO DAILY 01/04/21 [History] diphenhydrAMINE [Benadryl] 25 mg PO QID PRN 01/04/21 [History] Follow up Appointment(s)/Referral(s): [facility],Equipment [NON-STAFF] - None,Stated [REFERRING] - 1-[address],[place]urchase [NON-STAFF] -
[2021-01-10 11:50] LABS: African American GFR (CKD) 115.6 (60.0-200.0); Anion Gap 9.9 mmol/L (4.00-12.00); BUN/Creat Ratio 38.33 Ratio (12.00-20.00); Calcium 8.8 mg/dL (8.7-10.3); Carbon Dioxide 35.1 mmol/L (21.6-31.8); Magnesium 1.6 mg/dL (1.5-2.4); Non-African American GFR(CKD) 99.8 (60.0-200.0); Potassium 3.6 mmol/L (3.5-5.5)
== END 2021-01-10 13:40 | DRG 606 ==
LOC: EC 14:43 → 3SCARD 18:51 → 4SSUR 01-08 13:08
PROVIDERS: ADMIT Hospitalist; ATTEND Hospitalist
DX: I89.0 Lymphedema, not elsewhere classified (principal); I63.9 Cerebral infarction, unspecified; I50.33 Acute on chronic diastolic (congestive) heart failure; I11.0 Hypertensive heart disease with heart failure; Z79.01 Long term (current) use of anticoagulants; Z86.711 Personal history of pulmonary embolism; M17.11 Unilateral primary osteoarthritis, right knee; R09.02 Hypoxemia; J98.4 Other disorders of lung; R20.0 Anesthesia of skin
CPT/HCPCS: 36415; 71046; 80048; 80053; 83735; 83880; 84484; 85025; 85027; 93005; 93306; 96372; 96374; 99285

== ENCOUNTER 2022-03-25 15:17 | Observation (INO) | payer MEDICARE, OTHER ==
--- NOTE | 2022-03-25 15:30 | ED ---
General Adult HPI - General Chief complaint: Weakness Stated complaint: Weakness Time Seen by Provider: 03/25/22 15:25 Source: patient, EMS Mode of arrival: EMS Limitations: physical limitation - History of Present Illness Initial comments: Patient presents to the ED by ambulance for evaluation. Patient states that she has felt generally weak, particularly in her bilateral legs, since last night. Patient states that she is normally able to go up and down stairs on her own, but she has not been able to do so since last night. Patient also states that she has chronic bilateral lower extremity lymphedema. Patient denies having any lower extremity pain to me. Patient denies trauma/injury/fall, known fever, headache, focal numbness/weakness/neuro deficit, visual changes, chest pain, dyspnea, cough or cold symptoms, palpitations, dizziness, syncope, abdominal pain, nausea/vomiting/diarrhea, bloody or melanotic stool, dysuria or urinary symptoms, decreased urine output, or any other symptoms or complaints. Patient states that she is fully Covid-vaccinated. Patient states that she was recently diagnosed with atrial fibrillation, and she is currently on Xarelto anticoagulation therapy. - Related Data Home Medications Medication Instructions Recorded Confirmed Ketoconazole 2% Cream [Nizoral 2%] 1 applic TOPICAL BID 01/04/21 01/04/21 Nystatin [Nystop] 1 applic TOPICAL BID 01/04/21 01/04/21 Omeprazole 20 mg PO DAILY 01/04/21 01/04/21 Terbinafine [LamISIL] 250 mg PO DAILY 01/04/21 01/04/21 diphenhydrAMINE [Benadryl] 25 mg PO QID PRN 01/04/21 01/04/21 Previous Rx's Medication Instructions Recorded Acetaminophen with Codeine 1 tab PO BID PRN #10 tab 01/10/21 [Tylenol w/Codeine #4 Tablet] Furosemide [Lasix] 40 mg PO BID #60 tablet 01/10/21 Rivaroxaban [Xarelto] 20 mg PO DAILY tab 01/10/21 Allergies Allergy/AdvReac Type Severity Reaction Status Date / Time No Known Allergies Allergy Verified 01/04/21 18:14 Review of Systems ROS Statement: Those systems with pertinent positive or pertinent negative responses have been documented in the HPI. ROS Other: All systems not noted in ROS Statement are negative. Past Medical History Past Medical History: Atrial Fibrillation Additional Past Medical History / Comment(s): ortho problems in knees bilaterally, lymphodema. History of Any Multi-Drug Resistant Organisms: None Reported Past Surgical History: No Surgical Hx Reported Past Psychological History: No Psychological Hx Reported Smoking Status: Never smoker Past Alcohol Use History: None Reported Past Drug Use History: None Reported - Past Family History Mother Family Medical History: Blood Disorder, Deep Vein Thrombosis (DVT) Father Family Medical History: Deep Vein Thrombosis (DVT) General Exam Limitations: physical limitation General appearance: alert, in no apparent distress Head exam: Present: atraumatic, normocephalic Eye exam: Present: normal appearance, PERRL, EOMI ENT exam: Present: mucous membranes moist Neck exam: Present: other (Trachea is in midline). Absent: tenderness, meningismus Respiratory exam: Present: normal lung sounds bilaterally. Absent: respiratory distress, wheezes, rales, rhonchi, stridor Cardiovascular Exam: Present: tachycardia, irregular rhythm, normal heart sounds, other (Normal radial pulses bilaterally) GI/Abdominal exam: Present: soft. Absent: tenderness, guarding Extremities exam: Present: other (Bilateral lower extremity lymphedema; negative Homans sign bilaterally). Absent: tenderness, calf tenderness Back exam: Absent: CVA tenderness (R), CVA tenderness (L) Neurological exam: Present: alert, oriented X3, CN II-XII intact. Absent: motor sensory deficit Psychiatric exam: Present: normal affect, normal mood Skin exam: Present: warm, dry, intact, normal color Course Vital Signs 03/25/22 03/25/22 15:23 16:18 Temperature 99.2 F Pulse Rate 139 H 102 H Respiratory 18 18 Rate Blood Pressure 138/92 109/52 O2 Sat by Pulse 97 99 Oximetry - Reevaluation(s) Reevaluation #1: 03/25/22 18:41 Patient remains in atrial fibrillation on the supervisor tumblers, but her heart rate has now improved to the 90s to 100s. Patient remains alert and breathing comfortably. Patient denies development of any new symptoms while in the ED. Patient continues to state that she feels generally weak, and she does not feel that she can manage at home on her own. Patient agrees with hospital admission at this time. 03/25/22 18:49 Case, H&P, test results and ED management thus far were discussed with Dr. Frost. He accepts hospital admission. He has no further recommendations at this time. EKG Findings - EKG Comments: EKG Findings:: Atrial fibrillation with rapid ventricular response, ventricular rate of 126 bpm, normal QRS duration, normal QT interval, normal axis, nonspecific ST and T-wave abnormality Medical Decision Making - Medical Decision Making Patient presented to the ED in atrial fibrillation with RVR, and her heart rate has now improved. Patient's LFTs are mildly elevated, but she denies having any abdominal pain, she has no abdominal tenderness, and her gallbladder ultrasound is fairly unremarkable. The rest of the patient's labs are fairly unremarkable. Patient has been hydrated with IV fluids in the ED. Patient reports continued generalized weakness, and she prefers hospital admission given she states that she cannot manage on her own at home. Dr. Frost has accepted hospital admission. - Lab Data Result diagrams: 03/25/22 15:48 03/25/22 15:48 Lab Results 03/25/22 03/25/22 03/25/22 Range/Units 15:48 15:48 15:48 WBC 9.3 (3.8-10.6) k/uL RBC 4.48 (3.80-5.40) m/uL Hgb 12.0 (11.4-16.0) gm/dL Hct 38.1 (34.0-46.0) % MCV 84.9 (80.0-100.0) fL MCH 26.9 (25.0-35.0) pg MCHC 31.6 (31.0-37.0) g/dL RDW 14.9 (11.5-15.5) % Plt Count 336 (150-450) k/uL MPV 8.4 Neutrophils % 84 % Lymphocytes % 8 % Monocytes % 5 % Eosinophils % 1 % Basophils % 1 % Neutrophils # 7.8 H (1.3-7.7) k/uL Lymphocytes # 0.8 L (1.0-4.8) k/uL Monocytes # 0.5 (0-1.0) k/uL Eosinophils # 0.1 (0-0.7) k/uL Basophils # 0.0 (0-0.2) k/uL Hypochromasia Slight PT 11.2 (9.0-12.0) sec INR 1.0 (<1.2) APTT 25.6 (22.0-30.0) sec Sodium 140 (137-145) mmol/L Potassium 5.3 H (3.5-5.1) mmol/L Chloride 104 (98-107) mmol/L Carbon Dioxide 24 (22-30) mmol/L Anion Gap 12 mmol/L BUN 37 H (7-17) mg/dL Creatinine 0.89 (0.52-1.04) mg/dL Est GFR (CKD-EPI)AfAm 82 (>60 ml/min/1.73 sqM) Est GFR (CKD-EPI)NonAf 71 (>60 ml/min/1.73 sqM) Glucose 110 H (74-99) mg/dL Plasma Lactic Acid Ildefonso (0.7-2.0) mmol/L Calcium 9.0 (8.4-10.2) mg/dL Magnesium 1.9 (1.6-2.3) mg/dL Total Bilirubin 0.8 (0.2-1.3) mg/dL AST 152 H (14-36) U/L ALT 130 H (4-34) U/L Alkaline Phosphatase 226 H (38-126) U/L Troponin I (0.000-0.034) ng/mL NT-Pro-B Natriuret Pep pg/mL Total Protein 7.1 (6.3-8.2) g/dL Albumin 4.1 (3.5-5.0) g/dL TSH 1.200 (0.465-4.680) mIU/L Influenza Type A (PCR) (Not Detectd) Influenza Type B (PCR) (Not Detectd) RSV (PCR) (Not Detectd) SARS-CoV-2 (PCR) (Not Detectd) 03/25/22 03/25/22 03/25/22 Range/Units 15:48 15:48 15:48 WBC (3.8-10.6) k/uL RBC (3.80-5.40) m/uL Hgb (11.4-16.0) gm/dL Hct (34.0-46.0) % MCV (80.0-100.0) fL MCH (25.0-35.0) pg MCHC (31.0-37.0) g/dL RDW (11.5-15.5) % Plt Count (150-450) k/uL MPV Neutrophils % % Lymphocytes % % Monocytes % % Eosinophils % % Basophils % % Neutrophils # (1.3-7.7) k/uL Lymphocytes # (1.0-4.8) k/uL Monocytes # (0-1.0) k/uL Eosinophils # (0-0.7) k/uL Basophils # (0-0.2) k/uL Hypochromasia PT (9.0-12.0) sec INR (<1.2) APTT (22.0-30.0) sec Sodium (137-145) mmol/L Potassium (3.5-5.1) mmol/L Chloride (98-107) mmol/L Carbon Dioxide (22-30) mmol/L Anion Gap mmol/L BUN (7-17) mg/dL Creatinine (0.52-1.04) mg/dL Est GFR (CKD-EPI)AfAm (>60 ml/min/1.73 sqM) Est GFR (CKD-EPI)NonAf (>60 ml/min/1.73 sqM) Glucose (74-99) mg/dL Plasma Lactic Acid Ildefonso 1.1 (0.7-2.0) mmol/L Calcium (8.4-10.2) mg/dL Magnesium (1.6-2.3) mg/dL Total Bilirubin (0.2-1.3) mg/dL AST (14-36) U/L ALT (4-34) U/L Alkaline Phosphatase (38-126) U/L Troponin I <0.012 (0.000-0.034) ng/mL NT-Pro-B Natriuret Pep 660 pg/mL Total Protein (6.3-8.2) g/dL Albumin (3.5-5.0) g/dL TSH (0.465-4.680) mIU/L Influenza Type A (PCR) (Not Detectd) Influenza Type B (PCR) (Not Detectd) RSV (PCR) (Not Detectd) SARS-CoV-2 (PCR) (Not Detectd) 03/25/22 Range/Units 15:53 WBC (3.8-10.6) k/uL RBC (3.80-5.40) m/uL Hgb (11.4-16.0) gm/dL Hct (34.0-46.0) % MCV (80.0-100.0) fL MCH (25.0-35.0) pg MCHC (31.0-37.0) g/dL RDW (11.5-15.5) % Plt Count (150-450) k/uL MPV Neutrophils % % Lymphocytes % % Monocytes % % Eosinophils % % Basophils % % Neutrophils # (1.3-7.7) k/uL Lymphocytes # (1.0-4.8) k/uL Monocytes # (0-1.0) k/uL Eosinophils # (0-0.7) k/uL Basophils # (0-0.2) k/uL Hypochromasia PT (9.0-12.0) sec INR (<1.2) APTT (22.0-30.0) sec Sodium (137-145) mmol/L Potassium (3.5-5.1) mmol/L Chloride (98-107) mmol/L Carbon Dioxide (22-30) mmol/L Anion Gap mmol/L BUN (7-17) mg/dL Creatinine (0.52-1.04) mg/dL Est GFR (CKD-EPI)AfAm (>60 ml/min/1.73 sqM) Est GFR (CKD-EPI)NonAf (>60 ml/min/1.73 sqM) Glucose (74-99) mg/dL Plasma Lactic Acid Ildefonso (0.7-2.0) mmol/L Calcium (8.4-10.2) mg/dL Magnesium (1.6-2.3) mg/dL Total Bilirubin (0.2-1.3) mg/dL AST (14-36) U/L ALT (4-34) U/L Alkaline Phosphatase (38-126) U/L Troponin I (0.000-0.034) ng/mL NT-Pro-B Natriuret Pep pg/mL Total Protein (6.3-8.2) g/dL Albumin (3.5-5.0) g/dL TSH (0.465-4.680) mIU/L Influenza Type A (PCR) Not Detected (Not Detectd) Influenza Type B (PCR) Not Detected (Not Detectd) RSV (PCR) Not Detected (Not Detectd) SARS-CoV-2 (PCR) Not Detected (Not Detectd) - Radiology Data Chest x-ray: No active cardiopulmonary disease. Normal heart. No change. Gallbladder ultrasound: Common bile duct is 1 cm which is probably normal post cholecystectomy. No dilation of the intrahepatic bile ducts. No hydronephrosis. No focal liver defect. Disposition Clinical Impression: Generalized weakness, Elevated LFTs, Atrial fibrillation Disposition: ADMITTED IP TO THIS HOSP Condition: Stable Is patient prescribed a controlled substance at d/c from ED?: No Referrals: Nonstaff,Physician [Primary Care Provider] - 1-2 days Time of Disposition: 18:50
[2022-03-25] MEDS ORDERED: DILTIAZEM 5 MG/ML 5 ML VIAL IVP STA (15:39)
[2022-03-25 16:04] LABS: Basophils % (A) 1 %; Eosinophils # (A) 0.1 k/uL (0-0.7); Eosinophils % (A) 1 %; HCT 38.1 % (34.0-46.0); Hypochromasia Slight; Lymphocytes # (A) 0.8 k/uL (1.0-4.8); Lymphocytes % (A) 8 %; MCH 26.9 pg (25.0-35.0); MCHC 31.6 g/dL (31.0-37.0); MCV 84.9 fL (80.0-100.0); Mean Platelet Volume 8.4; Monocytes # (A) 0.5 k/uL (0-1.0); Monocytes % (A) 5 %; Neutrophils # (A) 7.8 k/uL (1.3-7.7); Neutrophils % (A) 84 %; Platelet Count 336 k/uL (150-450); RBC 4.48 m/uL (3.80-5.40); RDW 14.9 % (11.5-15.5); WBC 9.3 k/uL (3.8-10.6)
[2022-03-25 16:15] LABS: Albumin 4.1 g/dL (3.5-5.0); Magnesium 1.9 mg/dL (1.6-2.3); Partial Thromboplastin Time 25.6 sec (22.0-30.0); Potassium 5.3 mmol/L (3.5-5.1); Prothrombin Time 11.2 sec (9.0-12.0); Total Bilirubin 0.8 mg/dL (0.2-1.3); Total Protein 7.1 g/dL (6.3-8.2)
[2022-03-25] MEDS ORDERED: SODIUM CHLORIDE 0.9% 500 ML 500 ML IV ONE (16:42)
--- NOTE | 2022-03-25 16:58 | XR ---
EXAMINATION TYPE: XR chest 1V portable DATE OF EXAM: 03/25/2022 COMPARISON: 01/04/2021 HISTORY: Weakness TECHNIQUE: Single view FINDINGS: Heart is normal. Lungs are clear of consolidation. There are no hilar masses. There are amy st leads. Costophrenic angles are clear. IMPRESSION: No active cardiopulmonary disease. Normal heart. No change.
--- NOTE | 2022-03-25 18:17 | US ---
EXAMINATION TYPE: US gallbladder DATE OF EXAM: 03/25/2022 COMPARISON: NONE CLINICAL HISTORY: weakness, elevated LFT's. Elevated liver enzymes. cholecystectomy TECHNIQUE: Multiple sonographic images of the right upper quadrant are obtained. FINDINGS: EXAM MEASUREMENTS: Liver Length: 15.9 cm Gallbladder Wall: Surgically absent CBD: 1.0 cm Right Kidney: 12.0 x 5.9 x 5.2 cm TOBACCO STEMMER NOTES:Technical limitations due to patient's body habitus (5'6", 360 pounds) Pancreas: Obscured by bowel gas Liver: visualized portions appear wnl Gallbladder: Surgically absent Evidence for sonographic Ziegler's sign: no CBD: appears wnl Right Kidney: no evidence of hydronephrosis IMPRESSION: Common bile duct is 1 cm which is probably normal post cholecystectomy. No dilation of the intrahepat ic bile ducts. No hydronephrosis. No focal liver defect.
[2022-03-25 23:07] LABS: Appearance,Urine Clear (Clear); Bilirubin,Urine Negative (Negative); Blood,Urine Negative (Negative); Color,Urine Yellow; Glucose,Urine (UA) Negative (Negative); Ketones,Urine Negative (Negative); Leukocyte Esterase,Urine Negative (Negative); Nitrite,Urine Negative (Negative); PH, Urine 5.5 (5.0-8.0); Protein,Urine Trace (Negative); Specific Gravity,Urine 1.021 (1.001-1.035); Urobilinogen,Urine <2.0 mg/dL (<2.0)
[2022-03-26] MEDS ORDERED: HYDROcodone/APAP 7.5-325MG 1 EACH TAB PO PRN (00:21)
--- NOTE | 2022-03-26 01:45 | P.HPIM ---
History of Present Illness H&P Date: 03/25/22 Chief Complaint: generalizd weakness 61 year old female with lymphedema Patient comes in today for evaluation due to generalized weakness mainly in the legs this morning when she woke up she found it increasingly difficult to that up and started walking normally she uses a walker or cane to ambulate however lung edema is making her legs extremely heavy and today she was feeling generally tired and weak and was not able to ambulate and take care of herself for which she decided come to the hospital for evaluation. He denies any changes in her occasions, denies any fevers or chills denies coughing shortness of breath or chest pain denies any nausea vomiting abdominal pain or changes in bowel or urinary habits. In the ED blood work showed elevated liver enzymes however she reports that this chronically elevated. Patient was recently diagnosed with A. fib currently on Xarelto and metoprolol Chest x-ray was negative for any acute pathology, urinalysis was negative Review of Systems Pertinent positives as noted in HPI. All other systems were reviewed and are negative Past Medical History Past Medical History: Atrial Fibrillation Additional Past Medical History / Comment(s): ortho problems in knees bilaterally, lymphodema. History of Any Multi-Drug Resistant Organisms: None Reported Past Surgical History: No Surgical Hx Reported Past Psychological History: No Psychological Hx Reported Smoking Status: Never smoker Past Alcohol Use History: None Reported Past Drug Use History: None Reported - Past Family History Mother Family Medical History: Blood Disorder, Deep Vein Thrombosis (DVT) Father Family Medical History: Deep Vein Thrombosis (DVT) Medications and Allergies Home Medications Medication Instructions Recorded Confirmed Type Omeprazole 20 mg PO DAILY 01/04/21 03/25/22 History Digoxin [Lanoxin] 250 mcg PO HS 03/25/22 03/25/22 History Furosemide [Lasix] 20 mg PO DAILY 03/25/22 03/25/22 History HYDROcodone/APAP 7.5-325MG [[place] 1 tab PO BID PRN 03/25/22 03/25/22 History 7.5-325] Losartan Potassium 100 mg PO DAILY 03/25/22 03/25/22 History Metoprolol Tartrate [Lopressor] 50 mg PO BID 03/25/22 03/25/22 History Pregabalin [Lyrica] 100 mg PO HS 03/25/22 03/25/22 History Pregabalin [Lyrica] 400 mg PO DAILY 03/25/22 03/25/22 History Rivaroxaban [Xarelto] 20 mg PO W/SUPPER 03/25/22 03/25/22 History amLODIPine [Norvasc] 5 mg PO DAILY 03/25/22 03/25/22 History Allergies Allergy/AdvReac Type Severity Reaction Status Date / Time No Known Allergies Allergy Verified 03/25/22 19:48 Physical Exam Vitals: Vital Signs Temp Pulse Resp BP Pulse Ox 03/25/22 16:18 102 H 18 109/52 99 03/25/22 15:23 99.2 F 139 H 18 138/92 97 Intake and Output 03/25/22 03/25/22 03/25/22 06:59 14:59 22:59 Other: Weight 163.293 kg Constitutional: No acute distress, conversant, pleasant Eyes: Anicteric sclerae, moist conjunctiva, Pupils equal round reactive to light ENMT: NC/AT Oropharynx clear, no erythema, or exudates Neck: Supple, no masses, or JVD No carotid bruits No thyromegaly Lungs: Clear to auscultation Clear to percussion Normal respiratory effort, no accessory muscle use Cardiovascular: Heart irregular in rate and rhythm, No murmurs, gallops, or rubs Nonpitting edema bilateral leg Abdominal: Soft Nontender, no guarding, rebound or rigidity Abdomen moving with respiration Normoactive bowel sounds No hepatomegaly, No splenomegaly No palpable mass No abdominal wall hernia noted Skin: Normal temperature, tone, texture, turgor Small ulceration on the dorsal aspect of the right mid leg Extremities: No digital cyanosis No clubbing Pedal pulses intact and symmetrical Radial pulses intact and symmetrical No calf tenderness Psychiatric: Alert and oriented to person, place and time Appropriate affect fair judgement Neuro Muscles Strength 4/5 in all 4 extremities Sensation to light touch grossly present throughout Cranial nerves II-XII grossly intact No focal sensory deficits Lymphatics: no palpable cervical or supraclavicular lymph nodes Results CBC & Chem 7: 03/25/22 15:48 03/25/22 15:48 Labs: Abnormal Lab Results - Last 24 Hours (Table) 03/25/22 03/25/22 Range/Units 15:48 15:48 Neutrophils # 7.8 H (1.3-7.7) k/uL Lymphocytes # 0.8 L (1.0-4.8) k/uL Potassium 5.3 H (3.5-5.1) mmol/L BUN 37 H (7-17) mg/dL Glucose 110 H (74-99) mg/dL AST 152 H (14-36) U/L ALT 130 H (4-34) U/L Alkaline Phosphatase 226 H (38-126) U/L Assessment and Plan Assessment: Progressive generalized weakness and difficulty ambulating new Covid negative, influenza test negative Chronic lymphedema bilaterally PT consult patient Fall precaution as Infectious workup negative, cx-ray and UA both negative Atrial fibrillation on Xarelto Continue with metoprolol Chronically elevated liver enzymes Liver ultrasound shows postcholecystectomy changes Continue to monitor liver enzymes Avoid hepatotoxic meds line Superficial right leg wound, consultation to wound care Mildly elevated potassium Continue to monitor repeat levels in the morning DVT prophylaxis on Xarelto for A. fib Full code
[2022-03-26] MEDS: DIGOXIN 250 MCG TAB PO SCH ×2 (01:50→23:29)
[2022-03-26] MEDS: METOPROLOL TARTRATE 50 MG TAB PO SCH ×3 (01:50→22:49)
[2022-03-26] MEDS: PREGABALIN 100 MG CAP PO SCH ×3 (02:17→22:49)
[2022-03-26 09:33] LABS: Basophils # (A) 0.04 X 10*3/uL (0.00-0.10); Basophils % (A) 0.7 %; Eosinophils # (A) 0.23 X 10*3/uL (0.04-0.35); Eosinophils % (A) 4.2 %; HCT 34.5 % (37.2-46.3); HGB 10.5 g/dL (12.0-15.0); Immature Grans, Automated 0.2 %; Lymphocytes % (A) 18.2 %; MCH 26.4 pg (27.0-32.0); MCHC 30.4 g/dL (32.0-37.0); MCV 86.7 fL (80.0-97.0); Mean Platelet Volume 11.1 fL (9.5-12.2); Monocytes # (A) 0.51 X 10*3/uL (0.20-1.00); Monocytes % (A) 9.3 %; NRBC Per 100 WBC 0 /100 WBCS (0.0-0.0); Neutrophils % (A) 67.4 %; Platelet Count 289 X 10*3/uL (140-440); RBC 3.98 X 10*6/uL (4.10-5.20); RDW 16.2 % (11.5-14.5); WBC 5.49 X 10*3/uL (4.50-10.00)
[2022-03-26 09:43] LABS: African American GFR (CKD) 114.8 (60.0-200.0); Albumin 3.3 g/dL (3.8-4.9); Albumin/Globulin Ratio 1.32 (1.60-3.17); Anion Gap 5.9 mmol/L (10.00-18.00); BUN/Creat Ratio 38.5 Ratio (12.00-20.00); Blood Urea Nitrogen 23.1 mg/dL (9.0-27.0); Calcium 8.6 mg/dL (8.7-10.3); Carbon Dioxide 28.1 mmol/L (20.0-27.5); Globulin 2.5 g/dL (1.6-3.3); Non-African American GFR(CKD) 99.1 (60.0-200.0); Potassium 4.8 mmol/L (3.5-5.5); Total Protein 5.8 g/dL (6.2-8.2)
[2022-03-26] MEDS: NYSTATIN 100,000 UNIT/GM OINT 30 GM TUBE TOPICAL SCH ×3 (09:52→23:29)
[2022-03-26] MEDS: LOSARTAN 50 MG TAB PO SCH (09:53)
[2022-03-26] MEDS: amLODIPine 5 MG TAB PO SCH (09:53)
[2022-03-26] MEDS: PANTOPRAZOLE 40 MG TABLET PO SCH (09:53)
--- NOTE | 2022-03-26 11:39 | P.PN ---
Subjective Progress Note Date: 03/26/22 Principal diagnosis: Weakness Hospital Course: 61-year-old female with past medical history of lymphedema, atrial fibrillation, hypertension presented for generalized weakness. She was found to be in atrial fibrillation with RVR which was rate controlled in the ED. She is pending PT evaluation for lower extremity weakness, likely secondary to chronic lymphedema. Subjective: Patient seen and examined at bedside. No acute events overnight. She claims that her legs are always swollen, she uses 2 canes to walk at home. She denies any chest pain, shortness of breath, palpitations, lightheadedness, abdominal pain, urinary or bowel complaints. Pertinent positives and negatives as discussed above, a complete review of systems was performed and all other systems are negative. Vitals Signs Reviewed. General: nontoxic, no distress, appears at stated age Derm: warm, dry Head: atraumatic, normocephalic, symmetric Eyes: EOMI, no lid lag, anicteric sclera Mouth: no lip lesion, mucus membranes moist Cardiovascular: S1S2 normal rate, irregular, no murmur Lungs: CTA bilateral, no rhonchi, no rales , no accessory muscle use Abdominal: soft, nontender to palpation, no guarding, no appreciable organomegaly Ext: no gross muscle atrophy, chronic bilateral lymphedema, no contractures Neuro: CN II-XI grossly intact, no focal neuro deficits, 4/5 strength bilateral lower extremity Psych: Alert, oriented, appropriate affect Assessment and Plan: Progressive generalized weakness Difficulty ambulating Chronic lymphedema bilaterally in lower extremities -Infectious workup negative -Labs unremarkable -PT consult -Fall precautions Atrial fibrillation with RVR -Now rate controlled -On home metoprolol and xarelto Elevated liver enzymes -Liver ultrasound shows postcholecystectomy changes -LFTs downtrending Superficial right leg wound -Wound care Hyperkalemia - resolved DVT ppx: xarelto Code status: full code Anticipated discharge place: home Anticipated discharge time: 1+ days Objective - Vital Signs Vital signs: Vital Signs Temp 97.7 F 03/26/22 08:00 Pulse 80 03/26/22 08:10 Resp 18 03/26/22 08:10 BP 103/64 03/26/22 08:10 Pulse Ox 94 L 03/26/22 08:10 FiO2 Intake & Output 03/25/22 03/26/22 03/26/22 18:59 06:59 18:59 Weight 163.293 kg 163.293 kg - Labs CBC & Chem 7: 03/26/22 05:01 03/26/22 05:01 Labs: Abnormal Lab Results - Last 24 Hours (Table) 03/25/22 03/25/22 03/25/22 Range/Units 15:48 15:48 22:26 RBC (4.10-5.20) X 10*6/uL Hgb (12.0-15.0) g/dL Hct (37.2-46.3) % MCH (27.0-32.0) pg MCHC (32.0-37.0) g/dL RDW (11.5-14.5) % Neutrophils # 7.8 H (1.3-7.7) k/uL Lymphocytes # 0.8 L (1.0-4.8) k/uL Potassium 5.3 H (3.5-5.1) mmol/L Carbon Dioxide (20.0-27.5) mmol/L Anion Gap (10.00-18.00) mmol/L BUN 37 H (7-17) mg/dL BUN/Creatinine Ratio (12.00-20.00) Ratio Glucose 110 H (74-99) mg/dL Calcium (8.7-10.3) mg/dL AST 152 H (14-36) U/L ALT 130 H (4-34) U/L Alkaline Phosphatase 226 H (38-126) U/L Total Protein (6.2-8.2) g/dL Albumin (3.8-4.9) g/dL Albumin/Globulin Ratio (1.60-3.17) g/dL Urine Protein Trace H (Negative) 03/26/22 03/26/22 Range/Units 05:01 05:01 RBC 3.98 L (4.10-5.20) X 10*6/uL Hgb 10.5 L (12.0-15.0) g/dL Hct 34.5 L (37.2-46.3) % MCH 26.4 L (27.0-32.0) pg MCHC 30.4 L (32.0-37.0) g/dL RDW 16.2 H (11.5-14.5) % Neutrophils # (1.3-7.7) k/uL Lymphocytes # (1.0-4.8) k/uL Potassium (3.5-5.1) mmol/L Carbon Dioxide 28.1 H (20.0-27.5) mmol/L Anion Gap 5.90 L (10.00-18.00) mmol/L BUN (7-17) mg/dL BUN/Creatinine Ratio 38.50 H (12.00-20.00) Ratio Glucose (74-99) mg/dL Calcium 8.6 L (8.7-10.3) mg/dL AST 109 H (14-36) U/L ALT 92 H (4-34) U/L Alkaline Phosphatase 174 H (38-126) U/L Total Protein 5.8 L (6.2-8.2) g/dL Albumin 3.3 L (3.8-4.9) g/dL Albumin/Globulin Ratio 1.32 L (1.60-3.17) g/dL Urine Protein (Negative)
[2022-03-26] MEDS ORDERED: RIVAROXABAN 20 MG TAB PO SCH (17:30)
[2022-03-27 00:55] VITALS: RESP 17
--- NOTE | 2022-03-27 10:13 | P.DS ---
Providers Date of admission: 03/25/22 18:51 Expected date of discharge: 03/27/22 Attending physician: Artem Frost MD Primary care physician: Physician Nonstaff Hospital Course: Discharge Diagnosis: Bilateral lower extremity weakness, patient evaluated by physical therapy recommending that patient would benefit from subacute rehab to increase strength, functional mobility, and endurance. Patient declining rehab requesting discharge home to continue her physical therapy and home care already set up in [place]. Patient reports family is already on their way with her clothing and that she is ready for discharge. Lymphedema, patient to follow-up with wound care clinic in [place] where she follows for treatment of bilateral lower extremity lymphedema and ulceration on right lower extremity. Hyperkalemia, resolved Transaminitis, chronic. Morbid obesity with BMI 58.1 kg/m Hospital Course: Patient is a very pleasant 61-year-old female with a past medical history of lymphedema, neuropathy, hypertension, and atrial fibrillation on anticoagulation with Eliquis. She presented to the hospital on 03/25/22 with a chief complaint of increased lower extremity weakness. Patient reports he typically resides in [place] and has been staying with a friend out this way. Patient reports difficulties with ambulation and caring for herself since she came to the hospital for evaluation. Patient underwent full evaluation in the emergency department. CBC unremarkable. BMP revealed mild hyperkalemia with potassium of 5.3 and chronically elevated liver enzymes with AST of 152, ALT of 130, and alkaline phosphatase of 226. Troponin negative at less than 0.012 and pro-BMP also normal findings at 660. TSH normal at 1.200 and urinalysis negative for infection. Influenza A, influenza B, RSV, and Covid PCR negative.Patient was admitted under our services of consultation to physical therapy. Patient was evaluated by physical therapy recommending that patient would benefit from subacute rehab to increase strength, functional mobility, and endurance. Patient declining rehab requesting discharge home to continue her own physical therapy and home care already set up in [place]. Patient reports she was staying with a friend but is returning to [place] where she already has everything f that she needs set up. Patient reports she has full support 24 7 in [place] and lives with her sister. Patient reports she has home care on board along with home physical therapy and facility physical therapy. Patient reports her family is already on their way with her clothing and that she is ready for discharge, denying any further needs or complaints. medically, patient is stable however, it was recommended that patient would benefit from subacute rehab, again patient declined. Patient being discharged home with her family at this time and to continue with follow-up with wound care clinic and PCP in [place]. Physical examination: Patient seen and examined at bedside. Vital signs reviewed and stable. General: Nontoxic, no distress and appears stated age. Morbidly obese. Derm: Skin warm and dry, normal coloration for ethnicity. Head: Atraumatic, normocephalic and symmetric. Eyes: EOMs intact, no lid lag, and anicteric sclera Mouth: no lip lesions, mucus membranes moist Cardiovascular: regular rate and rhythm with normal S1S2, no murmur, positive posterior tibial pulses bilaterally, and cap refill < 2 seconds. Lungs: Respirations even, regular, and unlabored on room air. Lungs CTA bilaterally, no rhonchi, no rales, no wheezing, and no accessory muscle usage. Abdominal: soft, nontender to palpation, no guarding, no appreciable organomegaly Ext: ROM intact. No gross muscle atrophy, bilateral lower extremity lymphedema, no contractures Neuro: Speech clear, face symmetrical and CN II-XII grossly intact with no noted focal neuro deficits Psych: Alert and oriented to person, place, time, and situation. Appropriate and pleasant affect. A total of 34 minutes of time were spent preparing this complex discharge summary. Pt was discharged on 03/27/22 at 10:18 AM. Patient Condition at Discharge: Stable Plan - Discharge Summary New Discharge Prescriptions: New Nystatin 100,000 Unit/gm Oint [Mycostatin Oint] 1 applic TOPICAL TID 30 Days #1 each Continue Omeprazole 20 mg PO DAILY Pregabalin [Lyrica] 400 mg PO DAILY Pregabalin [Lyrica] 100 mg PO HS Losartan Potassium 100 mg PO DAILY Furosemide [Lasix] 20 mg PO DAILY amLODIPine [Norvasc] 5 mg PO DAILY Digoxin [Lanoxin] 250 mcg PO HS Metoprolol Tartrate [Lopressor] 50 mg PO BID HYDROcodone/APAP 7.5-325MG [[place] 7.5-325] 1 tab PO BID PRN PRN Reason: Pain Rivaroxaban [Xarelto] 20 mg PO W/SUPPER Discharge Medication List Omeprazole 20 mg PO DAILY 01/04/21 [History] Digoxin [Lanoxin] 250 mcg PO HS 03/25/22 [History] Furosemide [Lasix] 20 mg PO DAILY 03/25/22 [History] HYDROcodone/APAP 7.5-325MG [[place] 7.5-325] 1 tab PO BID PRN 03/25/22 [History] Losartan Potassium 100 mg PO DAILY 03/25/22 [History] Metoprolol Tartrate [Lopressor] 50 mg PO BID 03/25/22 [History] Pregabalin [Lyrica] 100 mg PO HS 03/25/22 [History] Pregabalin [Lyrica] 400 mg PO DAILY 03/25/22 [History] Rivaroxaban [Xarelto] 20 mg PO W/SUPPER 03/25/22 [History] amLODIPine [Norvasc] 5 mg PO DAILY 03/25/22 [History] Nystatin 100,000 Unit/gm Oint [Mycostatin Oint] 1 applic TOPICAL TID 30 Days #1 each 03/27/22 [Rx] Follow up Appointment(s)/Referral(s): Nonstaff,Physician [Primary Care Provider] - 1-2 days (Continue to follow up with your primary care provider, wound care, home care, and physical therapy in [place] as we discussed.) Patient Instructions/Handouts: A-fib (Atrial Fibrillation) (DC), Lymphedema (DC) Activity/Diet/Wound Care/Special Instructions: Activity: As tolerated. Take breaks as needed. Diet: Heart healthy and carb consistent diet. Avoid salts, or foods with hidden salts such as canned or boxed foods and frozen dinners. Extra salt makes your heart work harder and traps the fluid in your body for longer. Special Instructions: Take all of your medications as directed and remember to keep all of your doctor's appointments and follow-up as needed. Thank you for allowing us to participate in your care, it was truly a pleasure having you for our patient!!! Discharge Disposition: HOME WITH HOME HEALTH SERVICES
[2022-03-27] MEDS: amLODIPine 5 MG TAB PO SCH (10:31)
[2022-03-27] MEDS: LOSARTAN 50 MG TAB PO SCH (10:31)
[2022-03-27] MEDS: PREGABALIN 100 MG CAP PO SCH (10:38)
[2022-03-27] MEDS: PANTOPRAZOLE 40 MG TABLET PO SCH (10:39)
[2022-03-27] MEDS: NYSTATIN 100,000 UNIT/GM OINT 30 GM TUBE TOPICAL SCH (10:39)
[2022-03-27] MEDS: METOPROLOL TARTRATE 50 MG TAB PO SCH (10:39)
[2022-03-27 11:09] VITALS: BP 108/77; PULSE 90; TEMP 98.1
== END 2022-03-27 13:00 | disposition home health service (06) ==
LOC: EC 15:17 → 6NMEDSUR 18:51
PROVIDERS: ADMIT Student in an Organized Health Care Education/Training Program; ATTEND Student in an Organized Health Care Education/Training Program
DX: R53.1 Weakness (principal); E87.5 Hyperkalemia; I89.0 Lymphedema, not elsewhere classified; R74.8 Abnormal levels of other serum enzymes; R74.01 Elevation of levels of liver transaminase levels; E66.01 Morbid (severe) obesity due to excess calories; I48.91 Unspecified atrial fibrillation; I10 Essential (primary) hypertension; G62.9 Polyneuropathy, unspecified; Z79.01 Long term (current) use of anticoagulants; Z79.899 Other long term (current) drug therapy; Z20.822 Contact with and (suspected) exposure to COVID-19; Z90.49 Acquired absence of other specified parts of digestive tract; Z68.43 Body mass index [BMI] 50.0-59.9, adult
CPT/HCPCS: 96361; 96374; 99285; 36415; 94760; 93005; 97163; 83880; 80053 ×2; 83605; 83735; 84443; 84484; 85025 ×2; 85610; 85730; 81003; 87040; 87636; 71045; 76705; G0378 ×3